=== PATIENT | female | born 1970 | race Caucasian/White ===

== ENCOUNTER → 2020-02-16 14:03 | Outpatient (CLI) | payer MEDICARE, MEDICAID, SELFPAY ==
[2020-02-16 13:41] VITALS: BMI 25.9
--- NOTE | 2020-02-16 14:08 | RAD_ITS ---
STUDY: X-RAY CHEST REASON FOR EXAM: Female, 49 years old. COPD with acute exacerbation -- very sob now and couging TECHNIQUE: PA and lateral views of the chest. COMPARISON: Comparison is made with prior study dated October 30, 2016. FINDINGS: Hyperinflation. There now is evidence of a 1.5 cm x 1.4 cm nodule in the right upper lobe. Correlation with a CT scan is recommended. Blunting of both cause phrenic angles. Normal size heart. Normal mediastinum and bart. Normal visualized pulmonary arteries. Normal visualized aortic arch and descending thoracic aorta. Normal visualized thoracic spine. Normal visualized ribs, clavicles, and shoulders. There is no demonstrated abnormality of the visualized soft tissue structures of the upper abdomen. RAD/Chest PA and Lateral IMPRESSION: 1.5 cm x 1.4 cm nodule in the right upper lobe. CT scan is recommended for further evaluation. Hyperinflation. Electronically Signed: Rodney Garcia, at 14:29 EDT , Service support ,
== END ==
PROVIDERS: PCP Family Medicine; Referring Provider Physician Assistant Surgical; Visit Provider Physician Assistant Surgical
DX: J44.1 Chronic obstructive pulmonary disease with (acute) exacerbation (principal)
CPT/HCPCS: 71046

== ENCOUNTER → 2020-03-30 12:18 | Outpatient (CLI) | payer MEDICARE, MEDICAID, SELFPAY ==
[2020-03-11 07:22] VITALS: BMI 23.8
[2020-03-30 12:30] VITALS: PULSE 105; PULSE 106; PULSE 110; PULSE 112; PULSE 85; PULSE 97; PULSE 99; O2SAT 95; O2SAT 96; O2SAT 97; O2SAT 98
--- NOTE | 2020-03-31 13:39 | PCM.PSN.6M ---
PSN 6 Minute Walk Test - 6 Minute Walk Test 6 Minute Walk Test: 6 Minute Walk Test PSN:6-Minute Walk Test Start: 03/30/20 14:00 Freq: Status: Active Protocol: RESP.6MINW Document 03/30/20 12:30 EW (Rec: 03/30/20 14:05 EW [id number]) 6 Minute Walk Test Date Performed 03/30/20 Time Performed 12:30 Height 5 ft 2 in Weight: 130 lb Weight in Pounds 130.[address]: Negro Conteh Assistive device used: None Pre-test Oxygen Delivery Method Room Air Pulse Ox (%) 98 Pulse Rate (60-100 beats/min) 85 Dyspnea Sree Scale (0-10) 1 Exertion Sree Scale (6-20) 6 1st minute Oxygen Delivery Method Room Air Pulse Ox (%) 95 Pulse Rate (60-100 beats/min) 99 2nd minute Oxygen Delivery Method Room Air Pulse Ox (%) 95 Pulse Rate (60-100 beats/min) 112 H 3rd minute Oxygen Delivery Method Room Air Pulse Ox (%) 95 Pulse Rate (60-100 beats/min) 106 H 4th minute Oxygen Delivery Method Room Air Pulse Ox (%) 97 Pulse Rate (60-100 beats/min) 105 H 5th minute Oxygen Delivery Method Room Air Pulse Ox (%) 96 Pulse Rate (60-100 beats/min) 110 H 6th minute Oxygen Delivery Method Room Air Pulse Ox (%) 95 Pulse Rate (60-100 beats/min) 105 H Post-test Oxygen Delivery Method Room Air Pulse Ox (%) 98 Pulse Rate (60-100 beats/min) 97 Dyspnea Sree Scale (0-10) 2 Exertion Sree Scale (6-20) 8 Full Laps Walked 18 Partial Lap, Number of Tiles Walked 0 Total Distance Walked (ft) 1062 - Interpretation Interpretation: The patient ambulated 1062 feet over the course of 6 minutes beginning on room air without assistive devices or breaks. Pretesting oxygen saturation was noted to be 98% on room air. With ambulation, the sayra oxygen saturation was 95%. There was no significant exertional oxygen desaturation. - Recommendations Recommendations: There is no indication for the use of supplemental oxygen at this time.
== END ==
PROVIDERS: PCP Family Medicine; Referring Provider Internal Medicine Critical Care Medicine; Visit Provider Internal Medicine Critical Care Medicine
DX: R06.00 Dyspnea, unspecified (principal); R91.1 Solitary pulmonary nodule
CPT/HCPCS: 94618

== ENCOUNTER → 2020-04-07 | Outpatient (CLI) | payer MEDICARE, MEDICAID, SELFPAY ==
[2020-03-11 07:22] VITALS: BMI 23.8
--- NOTE | 2020-04-07 14:13 | PFTCOMP ---
COMPLETE PULMONARY FUNCTION TEST INTERPRETATION Brief HPI: Patient is a 49 year old female, currently under the care of myself, who presents to [facility] for complete pulmonary function tests secondary to diagnosis of dyspnea. Respiratory therapist reports good effort and reproducible results. Interpretation: Forced expiration spirometry shows a severe large airways obstructive ventilatory defect with an FEV1 of 47% predicted. There is a significant bronchodilator response in FEV1 and FVC by strict ATS criteria. Spirograms are of good quality and plateau slowly, indicating slowly emptying areas of the lungs. The respiratory flow volume loop shows decreased expiratory flow rates at all lung volumes consistent with airway obstruction. Lung volumes by body plethysmography show an elevated total lung capacity at 5.59 L, 120% predicted. FRC and RV are elevated out of proportion. Lung volume measurements are consistent with hyperinflation and air-trapping. Diffusion capacity by carbon monoxide is decreased at 51% predicted. The airway resistance is elevated. No previous pulmonary function tests were available for review. Impression: Partially reversible severe large airways obstructive ventilatory defect, resulting in air trapping with hyperinflation, and a symmetric reduction in diffusion capacity and a pattern consistent with COPD/asthma overlap syndrome.
== END | disposition home or self-care (01) ==
LOC: PSN 09:11
PROVIDERS: PCP Family Medicine; Referring Provider Internal Medicine Critical Care Medicine; Visit Provider Internal Medicine Critical Care Medicine
DX: R06.00 Dyspnea, unspecified (principal); R91.1 Solitary pulmonary nodule
CPT/HCPCS: 94060; 94726; 94729

== ENCOUNTER → 2020-04-12 09:03 | Outpatient (CLI) | payer MEDICARE, MEDICAID, SELFPAY ==
[2020-03-11 07:22] VITALS: BMI 23.8
[2020-04-12] VITALS (12 sets, daily range): BP systolic 78–114; BP diastolic 40–72; PULSE 72–79; RESP 14–18; TEMP 36.6; O2SAT 94–100; BMI 23.0
--- NOTE | 2020-04-12 | ASPIGT_PTH ---
PATIENT: ABDI ORR LOC: CT U#:[id number] AGE/SX: 54/F ROOM: RE04/12/[address]: Dr. Negro Conteh MD : 1970 BED: DIS: SPEC #: [id number] RECD: 04/12/20 12:39 STATUS: PATRICIA MAXI #: [id number] MINNIE: 04/12/20 00:[address]: Negro Conteh DEPT: SURGICAL PATHOLOGY RECD BY: Leandro Mcclain ENTERED: 04/12/20 12:39 SP TYPE: ASP RAD OTHR DR: Dr. Guero Tapia MD Tissues: Lung, NOS Procedures: FNA Specimen Adequacy Special Stain Group II Surgery Specimen Level IV Imprint (control) HEADER OPERATION: Right lung nodule, CT-guided core biopsy PRE-OP DIAGNOSIS: Right lung nodule TISSUE SUBMITTED: Right lung nodule, CT-guided core biopsy MICROSCOPIC DIAGNOSIS Right lung nodule, CT-guided core biopsy: Non-small cell carcinoma, favor adenocarcinoma, consistent with lung primary. See comment. MANJEET:jace 04/13/20 COMMENT The specimen is evaluated at the time of biopsy by Dr. Hull. Immediate Evaluation = Malignant cells present derived from non-small cell carcinoma. Immunohistochemistry ([id number]) supports the above diagnosis. Molecular studies on the tumor can be performed if clinically indicated. Please notify the laboratory if they are needed. Case has been reviewed in consultation with Dr. Padron who concurs with the above diagnosis. IDC:AM MICROSCOPIC DESCRIPTION Slides are reviewed. GROSS DESCRIPTION Received in fixative is one container labeled with the patient's name and designated right lung biopsy. The specimen consists of multiple irregular fragments of barrera soft tissue that in aggregate measure 1.5 x 0.1 x <0.1 cm. The specimen is totally submitted in one cassette. Two touch imprints are prepared at the time of core biopsy. / MANJEET:jace 04/12/20 TC:0 CPT: 98869, 44452
--- NOTE | 2020-04-12 | IMM_PTH ---
PATIENT: ABDI ORR LOC: CT U#:[id number] AGE/SX: 54/F ROOM: RE04/12/[address]: Dr. Negro Conteh MD : 1970 BED: DIS: SPEC #: [id number] RECD: 04/13/20 11:32 STATUS: PATRICIA REQ #: [id number] MINNIE: 04/12/20 00:[address]: Negro Conteh DEPT: IMMUNOHISTOCHEMISTRY RECD BY: Mary Kiran ENTERED: 04/13/20 11:34 SP TYPE: IMMUNO OTHR DR: Dr. Guero Tapia MD Tissues: Lung, NOS Procedures: RCC (add) NAPSIN A (add) CK20 (add) CK5-6 (add) CK7 (add) CK8 (add) HEP PAR (add) KY (add) TTF1 (add) P40 (add) ER (initial) PHYSICIAN & INSTITUTION [place] [id number] SPECIMEN INFORMATION: Tissue Source: Right lung nodule Clinical Info: Right lung nodule Specimen Number: [id number] CPT code: 24434, 36664 x10 METHODOLOGY: Deparaffinized sections of prefer/formalin-fixed tissue or PAP/DQ stained slides are incubated with monoclonal/polyclonal antibodies/oligonucleotide probes. Localization is made via biotin free immunoperoxidase method. Appropriate controls are performed and reacted as expected. Results on target cell population are indicated in the following table: RESULTS: ANTIBODY / CLONE RESULT ER (6F11) positive KY (1E2) negative CK7 (OV-TL12/30) positive CK8 (13vsjiS89) positive CK20 (KS20.8) negative TTF-1 (8G7G3/1) positive Napsin A (Rabbit Polyclonal) positive HepPar (OCh1E5) negative RCC (PN-15) negative CK5-6 (D5 & 1684) negative P40 (BC28) negative These tests were developed and their performance characteristics determined by [facility]. They may not have been cleared or approved by the U.S. Food and Drug Administration. The FDA has determined that such clearance or approval is not necessary. The above immunohistochemical/dualISH markers are ordered and reviewed by the Pathologist. INTERPRETATION: Right lung nodule, CT-guided core biopsy: Non-small cell carcinoma, favor adenocarcinoma, consistent with lung primary. SJ:jace 04/14/20
--- NOTE | 2020-04-12 09:04 | CT_ITS ---
PROCEDURE: CT GUIDED CORE NEEDLE BIOPSY OF A right upper lobe LUNG LESION INDICATION: Female, 49 years old. LUNG BIOPSY, RIGHT lung biopsy PHYSICIAN: Dr. Jose Shah CONSENT: Written informed consent was obtained having explained the risks, benefits and alternatives in detail with the patient who accepted the risks and agreed to proceed. Laboratory review and clinical assessment was performed. CONSCIOUS SEDATION PROTOCOL: The Drugs used were: 1 mg Versed, IV., and 50 mcg Fentanyl, IV. The sedation time was: 18 minutes. Conscious sedation was started at 10:07 AM and terminated at 10:25 AM. The conscious sedation protocol was independently monitored. RADIATION DOSAGE (If Supplied By Facility): CTDIvol = ( 16.67 ) mGy, DLP = ( 353.66 ) mGycm Individualized dose optimization techniques were used for this CT. TECHNIQUE: The patient was placed in the supine position. A noncontrast CT was performed to localize the lesion in the right upper lobe anteriorly . The skin surface was prepped and draped in a sterile fashion. 1% lidocaine was used for local anesthesia. Using CT guidance, a 20-gauge coaxial biopsy device was advanced to the periphery of the lesion. A total of 3 core specimens were obtained. The specimens were placed in a formalin solution. A post procedure CT demonstrated no adverse sequelae or pneumothorax. The patient tolerated the procedure well without adverse event. A negative biopsy does not exclude malignancy. Further imaging or clinical followup based on patient condition and degree of clinical suspicion for malignancy. Suggest rebiopsy, if biopsy results do not match with clinical scenario. CT/Biopsy/Inj or Needle Placement IMPRESSION: 1. CT directed core needle biopsy of the right upper lobe nodule using CT image guidance with image documentation as described. Pathology results are pending. 2. Conscious Sedation protocol utilized with independent monitoring. Electronically Signed: Rodney Garcia, at 11:01 EDT , Service support ,
[2020-04-12 09:27] LABS: Hematocrit 48.2 % (37-47); Mean Corp Hgb Conc 33.2 g/dL (32-36); Mean Corpuscular Hgb 33.3 pg (27.0-32.0); Mean Corpuscular Volume 100.2 fL (81-99); Mean Platelet Vol. 9.6 fl (6.2-12.0); Platelet Count 207 K/mm3 (150-450); RBC Distribution Width CV 12.2 % (11.6-14.6); RBC Distribution Width SD 45.8 fl (35.1-43.9); Red Blood Count 4.81 M/mm3 (4.2-5.4); White Blood Count 5.3 K/mm3 (4.4-11.0)
[2020-04-12 09:35] LABS: Prothrombin Time (Protime)PT. 12.3 SECONDS (11.7-14.9)
[2020-04-12 09:36] LABS: Partial Thromboplast Time 25.6 Seconds (24.1-36.2)
[2020-04-12] MEDS: Midazolam 2 MG/2 ML Syringe IV (10:06)
[2020-04-12] MEDS: fentaNYL 100 MCG/2 ML Ampul IV (10:07)
--- NOTE | 2020-04-12 10:30 | RAD_ITS ---
STUDY: X-RAY CHEST REASON FOR EXAM: Female, 49 years old. Post lung biopsy immediate TECHNIQUE: AP inspiration and expiration views. COMPARISON: Comparison is made with prior radiograph dated February 16, 2020. FINDINGS: The patient is status post right lung biopsy. There is no evidence of pneumothorax. RAD/Chest Insp/Exp 2 View IMPRESSION: No evidence of pneumothorax on the immediate postright lung biopsy radiograph. Electronically Signed: Rodney Garcia, at 15:39 EDT , Service support ,
--- NOTE | 2020-04-12 12:33 | RAD_ITS ---
STUDY: X-RAY CHEST REASON FOR EXAM: Female, 49 years old. 2 hour post right lung biopsy. TECHNIQUE: AP inspiration and expiration views COMPARISON: Comparison is made with prior examination done earlier in the day. FINDINGS: There is no evidence of pneumothorax on the two-hour post right lung biopsy radiograph. RAD/Chest Insp/Exp 2 View IMPRESSION: No evidence of pneumothorax on the two-hour post right lung apices radiograph. Electronically Signed: Rodney Garcia, at 13:17 EDT , Service support ,
== END ==
PROVIDERS: PCP Family Medicine; Referring Provider Internal Medicine Critical Care Medicine; Visit Provider Internal Medicine Critical Care Medicine
DX: R91.1 Solitary pulmonary nodule (principal); C34.11 Malignant neoplasm of upper lobe, right bronchus or lung
CPT/HCPCS: 32405; 36415; 71046; 77012; 85027; 85610; 85730; 88161; 88172; 88305; 88313; 88341; 88342; 99156; 99157; J7040; A4216

== ENCOUNTER → 2020-04-18 17:44 | Outpatient (CLI) | payer MEDICARE, MEDICAID, SELFPAY ==
[2020-04-15 05:48] VITALS: BMI 22.8
--- NOTE | 2020-04-18 17:44 | MRI_ITS ---
STUDY: MRI BRAIN WITH AND WITHOUT CONTRAST REASON FOR EXAM: Female, 49 years old. staging lung cancer -- new dx, no neuro symptoms TECHNIQUE: Standardized multiplanar fat and water weighted pulse sequences were obtained. IV 13ml dotarem was administered for the contrast portion of the examination. COMPARISON: None. FINDINGS: Normal size of the ventricles and extra-axial spaces for the patient''s age. There are a few punctate white matter lesions in the centrum semiovale and flores radiata without mass effect or restricted diffusion likely representing ischemic changes secondary to small vessel disease.. Normal bilateral basal ganglia. Normal thalami. There is no extra-axial fluid accumulation. Normal flow voids within the major intracranial circulation suggesting patency by spin echo criteria. Normal venous enhancement. There is no enhancing intra-axial or extra-axial abnormality. Normal sella turcica, pituitary gland, infundibular stalk, optic chiasm and hypothalamus. Normal tectal plate and pineal gland. Normal midbrain, reinaldo and medulla. Normal cerebellum. Normal basal cisterns. Normal bilateral temporal bones. Normal bilateral internal auditory canals. No demonstrated orbital abnormality, within the constraints of a routine brain study. There is minor mucosal thickening of the ethmoid air cells bilaterally.. Normal calvarium and skull base. Normal visualized soft tissue structures. Normal visualized upper cervical spine. MRI/Brain W/WO Contrast IMPRESSION: Minor periventricular white matter ischemic changes without mass effect or restricted diffusion. No evidence for metastatic disease. Electronically Signed: Donnell Chapman MD at 19:37 EDT , Service support ,
== END ==
PROVIDERS: PCP Family Medicine; Referring Provider Internal Medicine Critical Care Medicine; Visit Provider Internal Medicine Critical Care Medicine
DX: C34.90 Malignant neoplasm of unspecified part of unspecified bronchus or lung (principal)
CPT/HCPCS: 70553; A9575

== ENCOUNTER → 2020-04-26 14:02 | Outpatient (CLI) | payer MEDICARE, MEDICAID, SELFPAY ==
[2020-04-15 05:48] VITALS: BMI 22.8
--- NOTE | 2020-04-26 14:30 | PET_ITS ---
EXAMINATION: FDG PET CT INDICATIONS: A 49-year-old female with history of carcinoma of the lung presenting for initial staging examination. COMPARISON EXAMINATION: CT of the chest report dated 04/12/20. INDEX LESION SIZE SUV INTERPRETATION Right upper hemithorax pulmonary parenchyma-right upper lobe 19.8 mm x 24.7 mm (frame 189) 11.1 Quantitative criteria for viable neoplasm are fulfilled NON-INDEX LESION SIZE SUV INTERPRETATION Right upper lung zone linear 2.2 Quantitative criteria for viable neoplasm are not fulfilled TECHNIQUE: Following the intravenous administration of 13.19 mCi of F-18 deoxyglucose via the left antecubital fossa, multiplanar image acquisitions of the neck, chest, abdomen and pelvis to level of mid thigh, obtained at one hour post radiopharmaceutical administration contemporaneously interpreted with the current CT of the neck, chest, abdomen and pelvis to level of mid thigh, dated 04/26/[address] of the chest report dated 04/12/20 reveal: SERUM GLUCOSE LEVEL: 95 mg/dl. HEIGHT: 62 inches. WEIGHT: 130 lbs. FINDINGS: 1. A nodular focus of increased glucose metabolism is manifest in the right upper anterior lung-right upper lobe generating a calculated maximum standard uptake value of 11.1. The maximal axial diameter of the corresponding parenchymal density on review of CT of the chest dated 04/26/20 is 19.8 mm (transverse) x 24.7 mm (AP). 2. Linear increased radiopharmaceutical concentration is observed in the right upper lung adjacent to the aforementioned nodular density with a calculated standard uptake value of 2.2. Quantitative criteria for viable neoplasm are not fulfilled. 3. Normal physiologic distribution of the radiopharmaceutical is apparent in the hepatic (2.1) and splenic parenchyma, both renal units, bladder and visualized intestinal tract. There is uniform distribution of the radiopharmaceutical concentration defined in the visualized cerebellar hemispheres and cerebral cortical structures. Prominent gastrointestinal tract distribution of the radiopharmaceutical is noted extending from the proximal gastric body to the rectum-rectal vault. Prominent radiopharmaceutical concentration is observed in the left ventricular myocardium commensurate with the FED state. Pertinent CT findings are as follows. CHEST: Atherosclerotic calcification is defined in the thoracic aorta without evidence of dilatation, aneurysm formation. Coronary arterial calcification is observed. Bilateral axillary soft tissue densities with fatty hilus are non-glucose avid. There are no additional parenchymal densities-nodules defined in the right and left hemithorax demonstrating discernible increased FDG concentration. ABDOMEN AND PELVIS: Atherosclerotic calcification is defined in the abdominal aorta without evidence of dilatation, aneurysm formation. Pelvic arterial calcification is observed. Right-left subcentimeter inguinal soft tissue with fatty hilus is ametabolic. SKELETAL: Degenerative changes defined in the cervical, thoracic and lumbar spine demonstrate no evidence of glucose hypermetabolism. Diffuse demineralization is demonstrated. PET/PET/CT Tumor Base -Thigh Init IMPRESSION: 1. ABNORMAL EXAMINATION INDICATIVE OF MALIGNANT-VIABLE NEOPLASM. 2. Increased radiopharmaceutical concentration, nodular in presentation, defined in the right upper lung zone-right upper lobe fulfills quantitative criteria for viable neoplasm and presumably is manufacturer's representative of the site of the patient?s histologically confirmed primary pulmonary malignancy. 3. The linear increase in fluorine-labeled glucose uptake noted in the right upper lung field adjacent to the nodular focus does not fulfill quantitative criteria for viable neoplasm and likely represents an inflammatory process. 4. No other quantitatively significant hypermetabolic abnormalities are noted. There is no definitive scintigraphic evidence of distant metastatic disease. Electronic Signature Huey Murdock D.O. Accurate Quantification of SUVs for this report are calculated using the exclusive patented [employer]. (U.S. Patent No. [id number], [id number] [phone]). Electronically Signed: Huey Murdock DO at 23:06 EDT Tel , Service support ,
== END ==
PROVIDERS: PCP Family Medicine; Referring Provider Internal Medicine Critical Care Medicine; Visit Provider Internal Medicine Critical Care Medicine
DX: C34.11 Malignant neoplasm of upper lobe, right bronchus or lung (principal)
CPT/HCPCS: 78815; A9552

== ENCOUNTER → 2020-05-11 14:01 | Outpatient (CLI) | payer MEDICARE, MEDICAID, SELFPAY ==
[2020-05-02 15:08] VITALS: BMI 20.9
--- NOTE | 2020-05-11 14:02 | ECHODONC_ITS ---
Reason For Study: PRE CHEMO Procedure This was a 2D Doppler, Color Flow transthoracic echocardiogram. Myocardial strain analysis was performed in this exam to aid in the assessment of cardiac function. The study was technically difficult. Exam performed in department. Left Ventricle Normal LV size. The estimated ejection fraction is 55 %. No regional wall motion abnormalities noted. Right Ventricle Normal RV size. Normal systolic function. Atria Normal left atrium. Normal right atrium. Mitral Valve Normal mitral valve. Tricuspid Valve Normal tricuspid valve. Mild (1+) tricuspid valve insufficiency. Pulmonary artery systolic pressure is 28 mmHg. Aortic Valve Normal aortic valve. Pulmonic Valve Normal pulmonic valve. Great Vessels Normal aortic root. The pulmonary artery is normal size. Normal inferior vena cava. Pericardium/Pleural No pericardial effusion. MMode/2D Measurements & Calculations LVIDd: 4.9 cm IVSd: 0.76 cm Ao root diam: 3.0 cm LVIDs: 2.8 cm LVPWd: 0.84 cm RVDd: 2.1 cm FS: 43.1 % LAV(MOD-bp): 32.4 ml LA A4 area: 12.8 cm2 LA dimension(2D): 2.7 cm LAV(MOD-bp) Indexed: 20.2 ml/m2 LAV(MOD-sp2): 35.2 ml LAV(MOD-sp4): 27.5 ml RA A4 area: 11.8 cm2 Time Measurements MV dec time: 0.46 sec Doppler Measurements & Calculations MV E max vinh: 47.8 cm/sec Lat Peak E' Vinh: 8.0 cm/sec Med Peak E' Vinh: 7.6 cm/sec MV A max vinh: 38.1 cm/sec E/E' lat: 6.0 E/E' med: 6.3 MV E/A: 1.3 Ao V2 max: 97.3 cm/sec LV V1 max: 74.8 cm/sec TR max vinh: 240.6 cm/sec Ao max P.8 mmHg LV V1 max P.3 mmHg TR max P.2 mmHg Interpretation Summary Normal LV size. The estimated ejection fraction is 55 %. No regional wall motion abnormalities noted. Mild (1+) tricuspid valve insufficiency. Pulmonary artery systolic pressure is 28 mmHg. The global longitudinal strain = -15.2% (abnormal). Ordering Physician: August Perez Referring Physician: JORGE LUIS FLAHERTY Performed By: Pat Davey, KAREN, RVT
== END ==
PROVIDERS: PCP Family Medicine; Referring Provider Internal Medicine Medical Oncology; Visit Provider Internal Medicine Medical Oncology
DX: C34.11 Malignant neoplasm of upper lobe, right bronchus or lung (principal); R06.02 Shortness of breath
CPT/HCPCS: 93306; 93356

== ENCOUNTER → 2020-11-30 12:44 | Outpatient (CLI) ==
[2020-11-08 13:14] VITALS: BMI 23.7
--- NOTE | 2020-11-30 12:47 | CT_ITS ---
STUDY: CT CHEST WITH CONTRAST REASON FOR EXAM: Female, 49 years old. Lung cancer monitoring. RADIATION DOSAGE (If Supplied By Facility): CTDIvol = ( 10.59 ) mGy, DLP = ( 185.15 ) mGycm TECHNIQUE: Transaxial imaging was performed following intravenous administration of IV 100mL Isovue-300. Multiplanar coronal and sagittal images were reformatted. Individualized dose optimization techniques were used for this CT. COMPARISON: Comparison is made with prior CT scan dated 04/12/2020. FINDINGS: The previously seen nodule in the peripheral aspect of the right upper lobe has decreased in size. It presently measures 1.2 sinus by 1 cm. There is evidence of a stable appearing nodular increased soft tissue density suggestive of possible scarring. There now is evidence of a 7.9 mm irregular nodular density in the medial aspect of the right upper lobe as seen on axial image #30 and coronal image #143. There is no demonstrated pleural abnormality. Normal heart and pericardium. Normal mediastinum. Normal hilar regions. Normal enhanced pulmonary arteries. Normal aorta arch and descending thoracic aorta. Normal osseous structures. There is no demonstrated abnormality of the visualized upper abdomen. CT/Chest WITH Contrast IMPRESSION: Interval decrease in size of the nodular density in the peripheral aspect of the right upper lobe. 7.9 mm irregular nodular density in the medial aspect of the right upper lobe as described. Electronically Signed: Rodney Garcia MD at 13:55 EST , Service support ,
[2020-11-30 13:01] LABS: CREATININE FINGERSTICK 1.1 mg/dL (0.55-1.02)
== END ==
PROVIDERS: PCP Family Medicine; Referring Provider Internal Medicine Medical Oncology; Visit Provider Internal Medicine Medical Oncology
DX: C34.11 Malignant neoplasm of upper lobe, right bronchus or lung (principal)
CPT/HCPCS: 71260; Q9967

== ENCOUNTER → 2021-01-03 12:52 | Outpatient (CLI) | payer MEDICARE, MEDICAID, SELFPAY ==
[2020-11-08 13:14] VITALS: BMI 23.7
--- NOTE | 2021-01-03 12:54 | ART_ITS ---
Reason For Study: PVD Procedure A bilateral lower extremity continuous wave Doppler with analog waveform analysis,segmental pressures,and ankle brachial indexes without exercise. Left Segmental Pressures Left brachial= 123mmHg. Left posterior tibial artery = 138mmHg. Left dorsalis pedis artery = 137mmHg. Left digit = 110 mmHg. The left dorsalis pedis waveforms are triphasic. The left posterior tibial artery waveforms are triphasic. Right Segmental Pressures Right brachial= 132mmHg. Right posterior tibial artery = 146mmHg. Right dorsalis pedis artery = 120mmHg. Right digit = 123 mmHg. The right dorsalis pedis waveforms are triphasic. The right posterior tibial artery waveforms are triphasic. Indices The right ankle brachial index by the dorsalis pedis is 0.91. The right ankle brachial index by the posterior tibial artery is 1.11. The right digital-brachial index is 0.93. The left ankle brachial index by the dorsalis pedis is 1.04. The left ankle brachial index by the posterior tibial artery is 1.05. The left digital-brachial index is 0.83. Interpretation Summary Triphasic Doppler waveforms are noted at ankle level bilaterally. Pulse-volume recordings appear satisfactory at all levels bilaterally. Resting ankle-brachial indices are normal bilaterally. Digital-brachial indices are normal bilaterally. There is no evidence of significant arterial occlusive disease in the lower extremities bilaterally. Ordering Physician: Donnell Nolan Referring Physician: Guero Tapia Performed By: Jannet Canales RVT
== END ==
PROVIDERS: PCP Family Medicine; Referring Provider Podiatrist; Visit Provider Podiatrist
DX: I73.9 Peripheral vascular disease, unspecified (principal)
CPT/HCPCS: 93923

== ENCOUNTER → 2021-03-02 14:12 | Outpatient (CLI) | payer MEDICARE, MEDICAID, SELFPAY ==
[2021-03-02 13:46] VITALS: BMI 23.3
== END ==
PROVIDERS: PCP Family Medicine; Referring Provider Nurse Practitioner Acute Care; Visit Provider Nurse Practitioner Acute Care
DX: J44.9 Chronic obstructive pulmonary disease, unspecified (principal)
CPT/HCPCS: 87070; 87205

== ENCOUNTER → 2021-04-25 16:29 | Outpatient (CLI) | payer MEDICARE, MEDICAID, SELFPAY ==
[2021-03-02 13:46] VITALS: BMI 23.3
--- NOTE | 2021-04-25 16:45 | MRI_ITS ---
STUDY: MRI RIGHT ANKLE WITHOUT CONTRAST REASON FOR EXAM: Right ankle pain, pressure, burning for 6 months to 1 year, evaluate for sinus tarsi syndrome. TECHNIQUE: Standardized fat and water weighted pulse sequences were obtained in all 3 orthogonal planes. COMPARISON: None. FINDINGS: There is mild edema in the plantar heel pad (inversion recovery sagittal images 8-14). Normal posterior tibialis tendon. Normal flexor digitorum longus tendon. There is a small volume of fluid in the flexor hallucis longus tendon sheath, likely from communication with the tibiotalar articulation. Normal peroneus longus and brevis tendons. Normal tibialis anterior tendon. Normal extensor hallucis longus tendon. Normal extensor digitorum longus tendons. Normal Achilles tendon and teno-osseous insertion. Normal plantar fascia. Normal plantar calcaneal tubercles. Normal intrinsic muscles of the rearfoot. Normal distal tibiofibular syndesmotic ligamentous complex. There is mild thickening of the anterior talofibular ligament (T2 axial images 17, 18) suggestive of scarring. Normal calcaneofibular and posterior talofibular ligaments. There is replacement of the fat in the sinus tarsi (T1 sagittal images 10-12) and a small cyst in the sinus tarsi (inversion recovery sagittal image 12). Normal deltoid ligamentous complexes. Normal plantar calcaneonavicular (spring) ligament. There is a very small tibiotalar joint effusion (inversion recovery sagittal image 9). There is a small osteochondral lesion of the medial aspect of the superior talar dome (T1 sagittal image 8) measuring 0.45 cm in AP dimension with bone edema (T2 coronal image 15). Normal subtalar articulations. There is an os trigonum. There is a small talonavicular joint effusion (inversion recovery sagittal images 8, 9). Normal calcaneocuboid articulation. Normal navicular-cuneiform articulations. MRI/Lower Ext Joint Only (Routine) IMPRESSION: Fat replacement in the sinus tarsi suggestive of sinus tarsi syndrome. Small osteochondral lesion of the medial talar dome. Mild scarring of the anterior talofibular ligament. Small tibiotalar and talonavicular joint effusions. Electronically Signed: Magdy Segal MD at 10:39 EDT Tel , Service support ,
== END ==
PROVIDERS: PCP Family Medicine; Referring Provider Podiatrist; Visit Provider Podiatrist
DX: M25.571 Pain in right ankle and joints of right foot (principal); M76.821 Posterior tibial tendinitis, right leg; M19.071 Primary osteoarthritis, right ankle and foot
CPT/HCPCS: 73721

== ENCOUNTER → 2021-05-30 12:52 | Outpatient (CLI) | payer MEDICARE, MEDICAID, SELFPAY ==
[2020-11-08 13:14] VITALS: BMI 23.7
[2021-03-02 13:46] VITALS: BMI 23.3
--- NOTE | 2021-05-30 12:54 | CT_ITS ---
EXAM DESCRIPTION: CT scan of the chest with IV contrast CLINICAL HISTORY: 50 years Female, SURVEILLANCE LUNG CANCER COMPARISON: Previous CT scan of the chest obtained on 11/30/2020 TECHNIQUE: Axial CT images through the chest were performed with coronal and sagittal reconstruction images with IV contrast. This exam was performed according to our departmental dose-optimization program, which includes automated exposure control, adjustment of the mA and/or kV according to patient size and/or use of iterative reconstruction technique. FINDINGS: In the peripheral portion of the right upper lobe there is a soft tissue nodular density measuring 0.9 x 1.1 cm in size which has decreased when compared with the previous CT scan obtained on 11/30/2020 (at that time it measured 1.2 x 1.0 cm in size.) An additional pulmonary nodule is noted on axial cut 24 measuring 0.8 x 0.5 cm in size in this nodular density has minimally increased in size when compared with the previous CT scan and has somewhat irregular margin. Granuloma versus a slow growing metastasis are the diagnostic considerations. The remainder the pulmonary parenchyma is normal. The heart is normal. The superior mediastinum including the subcarinal bifurcation, both bart and the superior mediastinum are normal. Bone scanning windows through the thorax show the ribs and thoracic spine to be normal. No extrathoracic masses or lesions are seen. The visualized liver, spleen, and adrenals are normal. CT/Chest WITH Contrast IMPRESSION: 1. The soft tissue density in the peripheral portion of the right upper lobe has decreased in size now measuring 0.1 x 1.1 cm in size compared with the previous CT scan of 11/30/2020. 2. A second nodule is noted in the medial aspect of the right upper lobe measuring 0.8 x 0.5 cm in size which has slightly increased in size. Granuloma versus slow growing metastasis are the diagnostic considerations. Electronically Signed: Juan Saldivar DO at 8:12 EDT Tel , Service support ,
== END ==
PROVIDERS: PCP Family Medicine; Referring Provider Internal Medicine Medical Oncology; Visit Provider Internal Medicine Medical Oncology
DX: C34.11 Malignant neoplasm of upper lobe, right bronchus or lung (principal)
CPT/HCPCS: 71260; Q9967

== ENCOUNTER 2021-08-11 14:30 | Outpatient (RCR) | payer MEDICARE, MEDICAID, SELFPAY ==
--- NOTE | 2021-07-13 14:59 | HP.PTEVAL_ITS ---
Patient's Visit Information ABDI ORR is a 50 year old F referred to Physical Therapy by Dr. Donnell Nolan DPM with a diagnosis of Right sinus tarsi syndrome. Date of Evaluation: 07/13/21 Physical Therapist: Carlos Alberto Boyd - Visit Plan Frequency: 2x /Week Duration: 4 Weeks Plan: Continue with improving right ankle/foot strength and balance. - Subjective Pt. is a 50 y.o. female who has been having right ankle pain and instability for about 3-6 months with no specific injury that she is aware of. Pt. PLOF includes no history of right ankle pain in the past before this. She had x-ray of her ankle and also nerve conduction test which were negative. She will occasionally get some tingling in her right ankle. Pt. denies any falls. She has difficulty with walking on uneven ground, ascending/descending stairs, squatting, s tanding/walking longer than 1 hour, housework, and yard work. Pt. is currently on disability. Her goal with physical therapy is to become more active. She has had previous physical therapy for her left arm. She rates right ankle pain at 3/10 currently, 5/10 at worst, 1/10 at best and describes the pain as dull. She does not take any pain medication. Pt. PMH includes lung nodules, smoker about 1.5-2 packs a day for many years, and hysterectomy. Pt. lives with significant other in a two story home with no steps to enter. Her hobbies include working on cars and mowing grass. - Objective Palpation- Mild tenderness over right ankle lateral malleolus. Right ankle AROM DF- 10 degrees, PF 40 degrees, Inv- 43 degrees, and Ev- 12 degrees. Left ankle AROM DF -12 degrees, PF 43 degrees, Inv 48 degrees, and Ev 13 degrees. Right LE strength hip flexion [5/5] abduction [5/5], adduction [5/5], extension [5/5], knee flexion [5/5], knee extension [5/5], ankle DF [5/5], Inv [4+/5], Ev [4+/5], PF[ 4+/5]. Left LE strength hip flexion [5/5], abduction [5/5], adduction [5/5], extension [5/5], knee flexion [5/5], knee extension [5/5], ankle DF [5/5], Inv [4+/5], Ev [4+/5], PF [4+/5]. Sensation- WNL bilateral lower extremities. Tandem stance on right- 30 secs, left- 30 secs. SLS on right- 5 secs, left- 20 secs. Special tests- Anterior drawer [-], Posterior drawer [-], Talar tilt[-], Syndemosis squeeze [-]. Gait- Pt. ambulates with no gait deviations and does not have CAM boot. - Balance/Special Test Scores Lower Extremity Functional Score: 35 - Goals Goal 1:: Pt. will improve right ankle strength to 5/5 for all motions in order to improve stability and balance. Goal Time Frame: 4-6 Weeks Goal 2:: Pt. will be able to ascend/descend flight of stairs with alternating step pattern and no right ankle pain. Goal Time Frame: 4-6 Weeks Goal 3:: Pt. will be able to stand/walk for at least 1 hour with right ankle pain < 3/10. Goal Time Frame: 4-6 Weeks Goal 4:: Pt. will improve SLS on right > 15 secs in order to improve stability and balance. Goal Time Frame: 4-6 Weeks Goal 5:: Pt. will rate right ankle pain at worst at 3/10 with ADL's. Goal Time Frame: 4-6 Weeks Goal 6:: Pt. will improve LEFS score by 10% in order to improve mobility and balance. Goal Time Frame: 4-6 Weeks - Rehabilitation Potential Physical Therapy Diagnosis: Decreased right ankle strength, balance, and pain Rehabilitation Potential: Good - Anticipated Interventions Patient/Client Instruction: Educate patient on: Condition, Plan of Care, Benefits of Fitness Program For the Purpose of:: To decrease pain, To improve ability to perform ADL's, To improve performance and independence with ADL's, To increase flexibility/ROM, To improve endurance, To improve balance, To assume or resume ADL's, To improve tolerance to ADL's Therapeutic Exercise to Include: Strength training, Endurance training, Balance training, Gait and locomotor training Comment: Focus on ankle/foot strengthening and balance exercises. For the Purpose of:: To decrease pain, To improve ability to perform ADL's, To improve performance and independence with ADL's, To increase flexibility/ROM, To improve endurance, To improve balance, To assume or resume ADL's, To improve tolerance to ADL's Functional Training to Include: Gait training For the Purpose of:: To decrease pain, To decrease swelling/inflammation, To increase ROM, To improve ability to perform ADL's, To increase flexibility/ROM, To improve endurance, To improve balance, To improve safety with gait, To improve tolerance to ADL's Thank you for the opportunity to evaluate your patient. For Medicare and Medicare HMO plans, please review the plan of care and approve it. It will need to be FAXED BACK to us at [phone] for Medicare purposes. For Medicare only, by signing this I certify the plan of care. Please let me know if there are questions or concerns regarding this plan of care. Physician Signature : Date:
--- NOTE | 2021-08-11 15:11 | HP.PTDCSUM_ITS ---
It has been my pleasure to treat ABDI ORR referred by Dr. Donnell Nolan, DPM, with the diagnosis of Right sinus tarsi syndrome for a total of 6 visit(s). Discharge Date: Please see the following information for a summary of their discharge status. Subjective: Pt reports she is ready to be done with PT at this time Right kirk Pain Intensity (Out of 10): 1 % Improvement: 80 Objective/Function: R ankle strength is 5/5 throughout. No difficulty with stairs. SLS greater than 30 sec. I with HEP. Rx goals achieved Goal 1:: Pt. will improve right ankle strength to 5/5 for all motions in order to improve stability and balance. Goal Progress: Goal Met Goal 2:: Pt. will be able to ascend/descend flight of stairs with alternating step pattern and no right ankle pain. Goal Progress: Goal Met Goal 3:: Pt. will be able to stand/walk for at least 1 hour with right ankle pain < 3/10. Goal Progress: Goal Met Goal 4:: Pt. will improve SLS on right > 15 secs in order to improve stability and balance. Goal Progress: Goal Met Goal 5:: Pt. will rate right ankle pain at worst at 3/10 with ADL's. Goal Progress: Goal Met Goal 6:: Pt. will improve LEFS score by 10% in order to improve mobility and balance. Goal Progress: Goal Met Plan: Discharge to [facility] If there are questions or concerns regarding this patient's physical therapy, please feel free to call me at [phone]. Thank you for the referral of this patient. Sincerely, Omid Torres, PT, ATC Balance/Gait/Functional tests - Balance/Special Test Scores Lower Extremity Functional Score: 60
== END 2021-08-11 19:00 | disposition home or self-care (01) ==
LOC: PT 14:30
PROVIDERS: PCP Family Medicine; Referring Provider Podiatrist; Visit Provider Podiatrist
DX: M25.371 Other instability, right ankle (principal)
CPT/HCPCS: 97110; 97162; 97164

== ENCOUNTER → 2021-10-13 08:58 | Outpatient (CLI) | payer MEDICARE, MEDICAID, SELFPAY ==
--- NOTE | 2021-10-13 09:03 | NM_ITS ---
CLINICAL: 50-year-old female with history of primary lung carcinoma with current complaint of right shoulder pain. WHOLE BODY 99m Tc MDP RADIONUCLIDE BONE SCINTIGRAPHY COMPARISON: None available FINDINGS: Following the intravenous administration of 26.1 mCi of 99m Tc MDP, whole body bone images reveal: 1. Increased radiopharmaceutical concentration is defined in the acromioclavicular compartment of the right shoulder, fifth lumbar vertebra posteriorly on the right, the patellofemoral compartments of both knees, medial tibial compartment of the left knee, medial compartment of the left ankle, the right midfoot, forefoot. 2. The remaining skeletal structures are scintigraphically unremarkable with normal-appearing renal images and urinary bladder activity identified. Facilitated tracer distribution is visualized in the left maxilla, left zygoma and and interorbital aspect of the calvarium most consistent with periostitis. NM/Bone Scan Whole Body IMPRESSION: 1. The increase in radiopharmaceutical concentration defined in the right shoulder, fifth lumbar vertebra, bilateral knees, the left ankle, right midfoot, the right forefoot is most consistent with degenerative arthritis. 2. There is no definitive typical scintigraphic evidence of diffuse axial skeletal metastatic disease. Meticulous attention paid to the right shoulder articulations demonstrates no significant osseous abnormality. Electronically Signed: Huey Murdock DO at 8:01 EST Tel , Service support ,
== END ==
PROVIDERS: PCP Family Medicine; Visit Provider Internal Medicine Medical Oncology
DX: M25.511 Pain in right shoulder (principal); Z85.118 Personal history of other malignant neoplasm of bronchus and lung
CPT/HCPCS: 78306; A9503

== ENCOUNTER → 2021-10-17 12:20 | Outpatient (CLI) | payer MEDICARE, MEDICAID, SELFPAY ==
--- NOTE | 2021-10-17 12:45 | MRI_ITS ---
STUDY: MRI UPPER EXTREMITY RIGHT HUMERUS WITH T WITHOUT CONTRAST REASON FOR EXAM: Female, 50 years old. PAIN UNDER RIGHT ARMPIT RADIATING INTO RIGHT CHEST AT LEVEL OF ARMPIT X 2 MONTHS. HX OF LUNG NODULE. R/O METATSTASIS. patient had bone scan done 10/13/21 also. TECHNIQUE: Standardized fat and water weighted pulse sequences were obtained in all 3 orthogonal planes, pre-and post contrast administration. IV DOATREM 13mL was administered for the contrast portion of the examination. COMPARISON: Nuclear medicine whole body bone scan dated October 13, 2021. CT of the chest dated May 30, 2021 FINDINGS: Reidentification of small spiculated nodule in the upper one third aspect of the right upper lobe in the lateral subpleural region, see image 15/30 series 12. Linear spicules from this nodule extending into the subpleural space and intercostal regions of the right upper lobe resulting in mild edematous signal and irregularity. This is presumed postsurgical or posttreatment related fibrotic scarring, but it may require correlation with PET/CT imaging to determine if there is any active malignant metabolic activity in this region. Mild enhancement is seen in the same affected soft tissues. No visualized bone marrow edema or aggressive process and the shoulder structures or humerus. Normal subcutis adipose space. There is no demonstrated solid, cystic, or lipomatous mass within the subcutaneous adipose space. Normal visualized muscles and fascia. Normal visualized neurovascular bundles. Normal humerus. MRI/Upper Ext No Joint W/WO Cont IMPRESSION: 1. Reidentification of small spiculated nodule in the upper one third aspect of the right upper lobe in the lateral subpleural region, see image 15/30 series 12. Linear spicules from this nodule extending into the subpleural space and intercostal regions of the right upper lobe resulting in mild edematous signal and irregularity. This is presumed postsurgical or posttreatment related fibrotic scarring, but it may require correlation with PET/CT imaging to determine if there is any active malignant metabolic activity in this region. 2. Mild enhancement is seen in the same affected soft tissues. 3. No visualized bone marrow edema or aggressive process and the shoulder structures or humerus. Electronically Signed: Willy Merlos MD at 23:41 EST , Service support ,
== END ==
PROVIDERS: PCP Family Medicine; Visit Provider Internal Medicine Medical Oncology
DX: M25.511 Pain in right shoulder (principal)
CPT/HCPCS: 73220; A9575

== ENCOUNTER 2021-12-18 12:44 | Outpatient (CLI) | payer MEDICARE, MEDICAID, SELFPAY ==
--- NOTE | 2021-12-18 12:50 | CT_ITS ---
STUDY: CT CHEST WITH CONTRAST REASON FOR EXAM: Female, 50 years old. MONITOR LUNG CA RADIATION DOSAGE (If Supplied By Facility): CTDIvol = ( 9.53 ) mGy, DLP = ( 225.53 ) mGycm TECHNIQUE: Transaxial imaging was performed following intravenous administration of IV 100mL Isovue-300. Multiplanar coronal and sagittal images were reformatted. Individualized dose optimization techniques were used for this CT. COMPARISON: Comparison is made with prior study dated 05/30/2021. FINDINGS: Small benign-appearing bilateral axillary lymph nodes. Stable 6 mm slightly spiculated nodule in the anterior medial aspect of the right upper lobe. 7.6 mm nodular density in the peripheral lateral aspect of the right upper lobe and area of scarring. This nodule has decreased in size as compared to prior study. Hyperinflation. Emphysematous changes. There is no demonstrated pleural abnormality. Mild degree of coronary artery calcification. Normal mediastinum. Normal hilar regions. Normal enhanced pulmonary arteries. Normal aorta arch and descending thoracic aorta. There are mild degenerative changes of the thoracic spine. Fatty infiltration of the liver. CT/Chest WITH Contrast IMPRESSION: Stable 6 mm slightly spicular nodule in the anteromedial aspect of the right upper lobe. Interval decrease in size of a peripheral lateral nodule in the right upper lobe in the area of scarring. Electronically Signed: Rodney Garcia MD at 15:02 EST ,
== END 2021-12-18 23:59 | disposition home or self-care (01) ==
PROVIDERS: PCP Family Medicine; Referring Provider Internal Medicine Medical Oncology; Visit Provider Internal Medicine Medical Oncology
DX: C34.11 Malignant neoplasm of upper lobe, right bronchus or lung (principal)
CPT/HCPCS: 71260; Q9967

== ENCOUNTER → 2022-06-18 | Outpatient (CLI) | payer MEDICARE, MEDICAID, SELFPAY ==
--- NOTE | 2022-06-18 13:57 | CT_ITS ---
INDICATION: MONITOR RIGHT LUNG CANCER EXAMINATION: CT CHEST WITH CONTRAST - CT Chest W/ Contrast Injection TECHNIQUE: Helically acquired images were obtained of the chest following IV contrast. A radiation dose optimization technique was used for this scan. IV Contrast dosage and agent: COMPARISON: 05/30/2021 CT chest, 12/18/2021 CT chest FINDINGS: LUNGS, PLEURA AND LARGE AIRWAYS: Within the right upper lobe apical segment medially is noted similar size nodular appearance within the upper segment of the nodule measuring 9 x 5 cm with the inferior portion demonstrating increasing spiculated appearance versus scarring right upper lobe compared to the prior exam. [The right upper lobe lateral aspect is increased soft tissue density of the previously seen likely scarring now measuring 1.1 x 0.7 cm and previously measuring 1.0 x 0.4 cm. No pleural effusion or thickening. No pneumothorax. THYROID: No thyroid lesions. HEART AND PERICARDIUM: Heart size is normal. No pericardial effusion. VESSELS: Thoracic aorta is not dilated. No aortic dissection. No obvious central pulmonary embolism although this study was not performed with the pulmonary embolism protocol. MEDIASTINUM AND ANA: No mediastinal or hilar adenopathy. Esophagus is unremarkable. No hiatal hernia. UPPER ABDOMEN: No acute pathology. BONES: No suspicious lytic or blastic abnormality. CT/Chest WITH Contrast IMPRESSION: 1. Right upper lobe medial segment similar appearing 6 mm nodule, however increased inferior aspect spiculation versus scarring compared to the prior exam. 2. Right upper lobe lateral segment produces seen. Likely scarring now has increased soft tissue component compared to prior measuring 1.1 x 0.7 cm and previous and measuring 1.0 x 0.4 cm with otherwise similar appearance compared to the 12/18/2021 exam. These findings were similar compared to 05/30/2021 exam with underlying inflammatory/post treatment change not excluded. Electronically Signed: Travis Hernández DO at 14:54 EDT ,
== END | disposition home or self-care (01) ==
LOC: CT 13:55
PROVIDERS: Referring Provider Internal Medicine Medical Oncology; Visit Provider Internal Medicine Medical Oncology
DX: R91.1 Solitary pulmonary nodule (principal)
CPT/HCPCS: 71260; Q9967; A4216

== ENCOUNTER → 2022-12-28 | Outpatient (CLI) | payer MEDICARE, MEDICAID, SELFPAY ==
--- NOTE | 2022-12-28 13:05 | CT_ITS ---
EXAM: CT CHEST WITH INTRAVENOUS CONTRAST CLINICAL INDICATION: NSCLC, MONITOR TECHNIQUE: Helically acquired images were obtained of the chest with intravenous contrast. This CT exam was performed using one or more of the following dose reduction techniques: automated exposure control, adjustment of the mA and/or kV according to patient size, and/or use of iterative reconstruction technique. This report was created using [employer] report generation technology. CONTRAST: IV 100mL Isovue-300 COMPARISON: 06/18/2022 FINDINGS: LUNGS AND PLEURAL SPACES: There is a spiculated lesion in the right upper lobe that measures 1.1 x 1.2 x 1.5 cm on today''s exam compared to 0.9 x 1.1 x 1.1 cm on the previous exam. There is no focal consolidation. No pleural effusion or thickening. No pneumothorax. HEART: Unremarkable. Heart size is normal. No pericardial effusion. No significant coronary artery calcifications. MEDIASTINUM: Unremarkable. No mediastinal or hilar adenopathy. Esophagus is unremarkable. No hiatal hernia. THYROID: Unremarkable. No thyroid lesions. BONES/JOINTS: Unremarkable. No suspicious lytic or blastic abnormality. VASCULATURE: Unremarkable. Thoracic aorta is non-dilated. No thoracic aortic dissection. No obvious central pulmonary embolism although this study was not performed with the pulmonary embolism protocol. CT/Chest WITH Contrast IMPRESSION: Spiculated lesion again seen within the right upper lobe which is minimally increased in size on today''s examination. If indicated further evaluation with PET CT scan may be beneficial. No other abnormalities identified. Electronically Signed: Emmanuel Wyman MD at 0:03 EST ,
== END | disposition home or self-care (01) ==
LOC: CT 13:03
PROVIDERS: Visit Provider Internal Medicine Medical Oncology
DX: C34.91 Malignant neoplasm of unspecified part of right bronchus or lung (principal)
CPT/HCPCS: 71260; Q9967

== ENCOUNTER → 2023-07-02 | Outpatient (CLI) | payer MEDICARE, MEDICAID, SELFPAY ==
--- NOTE | 2023-07-02 13:23 | CT_ITS ---
STUDY: CT CHEST WITH CONTRAST REASON FOR EXAM: Female, 52 years old. MONITOR LUNG CA RADIATION DOSAGE (If Supplied By Facility): CTDIvol = ( 7.78 ) mGy, DLP = ( 222.04 ) mGycm TECHNIQUE: Transaxial imaging was performed following intravenous administration of IV 100mL Isovue-300. Multiplanar coronal and sagittal images were reformatted. Individualized dose optimization techniques were used for this CT. COMPARISON: Comparison is made with prior study from December 28, 2022. FINDINGS: CHEST Stable 8 mm lobulated nodule in the superior medial aspect of the right upper lobe. Stable 8.9 mm x 1.2 cm spiculated nodule in the peripheral lateral aspect of the right upper lobe as seen on axial image #34. Stable focal pleural thickening at that site. Stable mild scarring in the right middle lobe. There is no demonstrated pleural abnormality. Normal heart and pericardium. Normal mediastinum. Normal hilar regions. Normal unenhanced pulmonary arteries. Normal aorta arch and descending thoracic aorta. There are multi-level degenerative changes of the thoracic spine. There is no demonstrated abnormality of the visualized upper abdomen. CT/Chest WITH Contrast IMPRESSION: Stable examination. Electronically Signed: Rodney Garcia MD at 15:37 EDT ,
== END | disposition home or self-care (01) ==
PROVIDERS: Referring Provider Internal Medicine Medical Oncology; Visit Provider Internal Medicine Medical Oncology
DX: C34.11 Malignant neoplasm of upper lobe, right bronchus or lung (principal)
CPT/HCPCS: 71260; Q9967

== ENCOUNTER → 2023-12-31 | Outpatient (CLI) | payer MEDICARE, MEDICAID, SELFPAY ==
--- NOTE | 2023-12-31 13:13 | CT_ITS ---
HISTORY: MONITOR LUNG CA. TECHNIQUE: CT of the chest was performed after the intravenous administration of IV 100mL Isovue-300. Coronal and sagittal reformatted images. Individualized dose optimization techniques were used for this CT. 821 images. COMPARISON: CT 07/02/2023, 12/28/2022, and 06/18/2022. PET-CT 04/26/2020. FINDINGS: CENTRAL AIRWAYS: Patent. LUNGS: 8 x 10 x 12 mm spiculated right upper lobe nodule medially, previously 6 x 9 x10 mm on 2022 priors. Right upper lobe scarring more laterally with residual 6 x 15 mm opacity similar in size to prior. PLEURA: No pneumothorax or significant pleural effusion. HEART/PERICARDIUM: Heart within normal limits in size. Trace pericardial effusion. AORTA/VESSELS: No thoracic aortic aneurysm or dissection flap. Mild atherosclerosis. No large central filling defect identified in the pulmonary arteries. MEDIASTINUM/ANA: No pathologically enlarged lymph nodes. OSSEOUS STRUCTURES: Intact without suspicious osteoblastic or osteolytic lesion. UPPER ABDOMEN: Unremarkable. CT/Chest WITH Contrast IMPRESSION: Slightly increased size of spiculated nodule in the medial right upper lobe. Recommend correlation with PET-CT. No significant interval change in appearance of scarring and treated mass in the right upper lobe more laterally. Electronically Signed: Eden Ko MD at 12:14 EST ,
--- OUTSIDE RECORDS SUMMARY | 2023-12-31 16:23 | XMS RPT_ITS | CCD ---
Author Name Unknown Address [address] [place] [address] Organization [facility] Care Team Providers Care Machine Operator Hay Stacker Name Role Phone FARIDEH LEO DO Primary Care Physician FARIDEH LEO DO Attending Unavailable FARIDEH LEO DO Primary Care Unavailable FARIDEH LEO DO Attending Unavailable FARIDEH LEO DO Primary Care Unavailable Allergies Allergy Classification Reported Allergen(s) Allergy Type Date of Onset Reaction(s) Facility (2 sources) Penicillin; Translations: [penicillins] Drug Allergy unknown [facility] (2 sources) Sulfonamides (Antibiotic); Translations: [sulfa drugs] Drug allergy unknown [facility] Medications Current Medications Medication Drug Class(es) Dates Sig (Normalized) Sig (Original) albuterol MDI (90 mcg/inh) CFC free inhalation aerosol (1 source) Start: 09-25-2019 take 2 puff(s) by inhalation every four hours as needed for wheezing albuterol MDI (90 mcg/inh) CFC free inhalation aerosol 2 puff(s), Inhalation, q4h, PRN as needed for wheezing, # 1 EA, 11 Refill(s), Pharmacy: [facility] #[id number] Start Date: 09/25/19 Status: Ordered Breztri Aerosphere inhalation aerosol (1 source) Start: 06-27-2022 take 1 dose by mouth twice daily Breztri Aerosphere inhalation aerosol Dose = 2 puff(s), Inhalation, BID, rinse mouth and throat after use, # 5.9 gram(s), 0 Refill(s), Pharmacy: [facility] #[id number], COPD, severe Decreased diffusion capacity, 166, cm, 06/27/22 14:05:00 EDT, Height Start Date: 06/27/22 Status: Ordered DME [facility] (2 sources) Start: 04-23-2022 DME [facility] See Instructions, Fan / AC unit Patient would benefit from having a fan / AC unit due to COPD., # 1 EA, 0 Refill(s), 66.1 Start Date: 04/23/22 Status: Ordered fluticasone / umeclidinium / vilanterol (1 source) Anticholinergic, Corticosteroid, beta2-Adrenergic Agonist Start: 05-18-2022 fluticasone/umeclid inium/vilanterol Respiratory (Inhalation), 0 Refill(s) Start Date: 05/18/22 Status: Ordered hydrocortisone 25 mg/ml topical cream (1 source) Corticosteroid Start: 11-20-2020 hydrocortisone 2.5% topical cream Apply 1 israel, Topical, BID, # 20 gram(s), 1 Refill(s), Pharmacy: [facility]/pharmacy #[id number], Cream, 166, cm, 11/18/20 15:04:00 EST, Height, 60.4, kg, 11/18/20 15:04:00 EST, Dosing Weight Start Date: 11/20/20 Status: Ordered 24 hr mirabegron 25 mg extended release oral tablet (1 source) beta3-Adrenergic Agonist Start: 07-22-2023 Myrbetriq 25 mg oral tablet, extended release Dose : 25 mg = 1 tab(s), Oral, qDay, if doing well, call for 90 day Rx, # 30 tab(s), 1 Refill(s), Pharmacy: [facility]/pharmacy #[id number], Urge incontinence, 165, cm, 07/22/23 14:32:00 EDT, Height, kg, 07/22/23 14:32:00 EDT, Dosing Weight Start Date: 07/22/23 Status: Ordered montelukast 10 mg oral tablet (2 sources) Leukotriene Receptor Antagonist Start: 12-26-2022 montelukast 10 mg oral tablet Dose : 10 mg = 1 tab(s), Oral, qDay, # 90 tab(s), 3 Refill(s), Pharmacy: [facility]/pharmacy #[id number], COPD with emphysema, 166, cm, 12/26/22 14:04:00 EST, Height, kg, 12/26/22 14:04:00 EST, Dosing Weight Start Date: 12/26/22 Status: Ordered Problems Problem Classification Problem Date Documented Da te Episodic/Chronic Allergic reactions (1 source) Eczema 07-22-2023 Episodic Anxiety disorders (2 sources) Anxiety 06-12-2016 Chronic Anxiety disorders (2 sources) Feeling irritable 04-20-2022 Episodic Cancer of bronchus; lung (1 source) Adenocarcinoma of right lung 01-25-2023 Chronic Chronic obstructive pulmonary disease and bronchiectasis (3 sources) Pulmonary emphysema; Translations: [Severe chronic obstructive pulmonary disease] 04-20-2022 Chronic Results Test Name Value Interpretation Reference Range Facil ity Encounters Encounter Date Encounter Type Care Provider Facility Start: 07-22-2023 End: 07-26-2023 Outreach Lab FARIDEH LEO DO [facility] Start: 06-14-2022 End: 06-15-2022 ambulatory FARIDEH LEO DO Facility:B Start: 06-14-2022 End: 06-14-2022 Patient encounter procedure FARIDEH LEO DO [facility] Start: 05-16-2022 End: 05-17-2022 ambulatory FARIDEH LEO DO Facility:B Procedures Date Procedure Procedure Detail Performing Clinician History of total hysterectomy S/P total h ysterectomy FARIDEH LEO DO Ligation of fallopian tube Krish LEO DO Immunizations Immunization Date Immunization Notes Care Provider Jm mosqueda 07-22-2023 influenza, injectabl e, quadrivalent, contains preservative; Translations: [Fluarix PF Quadrivalent ] FARIDEH LEO DO [facility] 08-14-2022 influenza, injectabl e, quadrivalent, contains preservative; Translations: [Fluarix PF Quadrivalent ] FARIDEH LEO DO [facility] 07-18-2020 influenza virus vacc ine, unspecified formulation FARIDEH LEO DO [facility] 09-25-2019 influenza, injectabl e, quadrivalent, preservative free; Translations: [Fluarix PF Quadrivalent ] FARIDEH LEO DO [facility] 06-27-2018 influenza virus vacc ine, unspecified formulation FARIDEH LEO DO [facility] 09-09-2017 influenza virus vacc ine, unspecified formulation FARIDEH LEO DO [facility] 09-08-2016 tetanus toxoid, redu ramos diphtheria toxoid, and acellular pertussis vaccine, adsorbed FARIDEH LEO DO [facility] 08-08-2016 influenza virus vacc ine, unspecified formulation FARIDEH LEO DO [facility] 08-11-2015 influenza virus vacc ine, unspecified formulation FARIDEH LEO DO [facility] 08-26-2014 pneumococcal polysaccharide vaccine, 23 valent FARIDEH LEO DO [facility] 08-26-2014 tetanus toxoid, redu ramos diphtheria toxoid, and acellular pertussis vaccine, adsorbed FARIDEH LEO DO [facility] Payers Date Payer Category Payer Unknown [id number] 1970 Unknown [id number] 1970 Unknown [id number] Social History Date Type Detail Facility Start: 09-23-2019 Tobacco smoking status Heavy t obacco smoker (finding) [facility] Sex Assigned At Female [facility] Progress note 07-20-2021 Note Date & Type Note Facility 07-20-2021 Note HNO ID: [id number] Author: Anabel Chapa APRN.DRUM LOADER AND UNLOADER Service: ? Author Type: Nurse Practitioner Type: Progress Notes Filed: 07/20/2021 6:05 PM Note Text: SUBJECTIVE Abdi Ernst is a 50 year old female who presents with 2 days of symptoms that are stable. Has URI symptoms. Also complains of sore spot in right armpit. Symptoms include: Fever (?100.4F): No or Chills: No Cough: Yes Shortness of breath: No or Difficulty breathing: No Fatigue: No Muscle aches: No Headache: No New loss of smell or taste: No Sore throat: No Nasal congestion: Yes or Rhinorrhea: Yes Nausea: No or Vomiting: No Diarrhea: No High risk category assessment No high risk factors Exposures: Sick contacts? No Family or close contacts with confirmed/probable COVID-19 in last 14 days? No She reports that she has been smoking. She has never used smokeless tobacco. 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 ALLERGIES Penicillins and Sulfa (Sulfonamide Antibiotics) MEDICATIONS clotrimazole (LOTRIMIN) 1 % external solution Apply to affected area once daily. To toes. hydrocortisone 2.5 % cream Apply to affected area twice daily. APPLY TO AFFECTED AREA busPIRone (BUSPAR) 15 mg tablet Take 15 mg by mouth twice daily. OLANZapine (ZYPREXA) 10 mg tablet Take 1 tablet by mouth daily at bedtime. guaiFENesin (MUCINEX) 600 mg 12 hr tablet Take 1 tablet by mouth twice daily for 10 days. albuterol HFA (VENTOLIN HFA) 90 mcg/actuation inhaler Inhale 2 Puffs as instructed every 4 hours as needed. mupirocin (BACTROBAN) 2 % ointment Apply 1 application to affected area twice daily for 10 days. TRELEGY ELLIPTA 100-62.5-25 mcg Inhale 1 Puff as instructed once daily. busPIRone (BUSPAR) 7.5 mg tablet Take 7.5 mg by mouth twice daily. OLANZapine (ZYPREXA) 5 mg tablet TAKE 1 TABLET BY MOUTH EVERYDAY AT BEDTIME No family history on file. Social History Tobacco Use - Smoking status: Current Every Day Smoker - Smokeless tobacco: Never Used Substance Use Topics - Alcohol use: Not on file - Drug use: Not on file OBJECTIVE Physical Exam Vitals and nursing note reviewed. HENT: Nose: Congestion and rhinorrhea present. Mouth/Throat: Mouth: Mucous membranes are moist. Pharynx: Oropharynx is clear. Uvula midline. No oropharyngeal exudate or posterior oropharyngeal erythema. Cardiovascular: Rate and Rhythm: Normal rate and regular rhythm. Heart sounds: Normal heart sounds. Pulmonary: Effort: Pulmonary effort is normal. No respiratory distress. Breath sounds: Wheezing (few, scattered) present. No rales. Skin: General: Skin is warm and dry. Findings: Erythema (right armpit slight erythema at hair follicle) present. No rash. Neurological: Mental Status: She is alert. ASSESSMENT/PLAN ASSESSMENT/PLAN: 1. Suspected COVID-19 virus infection - ICD9: V01.79, ICD10: Z20.822 (primary diagnosis) - 2019 CORONAVIRUS - GUAIFENESIN ER 600 MG TABLET, EXTENDED RELEASE 12 HR 2. Inflamed hair follicle - ICD9: 680.9, ICD10: L73.9 - MUPIROCIN 2 % TOPICAL OINTMENT - Follow-up with your PCP in 3-5 days if symptoms have not improved or sooner if symptoms worsen - Discussed red flags and need for immediate medical evaluation if any occur. - Discussed supportive care treatment with fluids, rest and analgesia. - Discussed expected course of illness Anabel Chapa APRN.CNP - Meets symptom-based criteria for testing and is low risk. - COVID swab collected at time of office visit - Instructed to isolate pending test results - Discussed symptom monitoring and supportive care - Red flag symptoms requiring follow up discussed This patient encounter involved the screening or treatment of novel coronavirus infection (COVID-19). [facility] Progress note 02-01-2021 Note Date & Type Note Facility 02-01-2021 Note HNO ID: [id number] Author: Eric Piper (Rt) Service: ? Author Type: Rehabilitation Manager Type: Progress Notes Filed: 02/01/2021 1:51 PM Note Text: Radiology Service Progress Note PATIENT NAME: Abdi Ernst DATE OF SERVICE: February 01, 2021 TIME: 1:42 PM PATIENT IDENTITY VERIFICATION COMPLETED USING TWO (2) IDENTIFIERS: Name and Date of confirmed by patient verbally. FALL SCREENING: Has the patient had 2 falls in the last year or 1 fall with injury or currently using an Ambulatory Assistive Device (Walker, Cane, Wheelchair, Crutches, etc.)? No PATIENT GENDER DATA: Female. status: : No status: NO. PATIENT RELEVANT IMPLANT DATA REVIEWED: Yes RADIOLOGY DEPARTMENT: General X-ray: Exam(s) Completed: Chest X-Ray PERIPHERAL IV DATA: Not applicable SIGNED BY: RT Feliz February 01, 2021 1:42 PM [facility] Progress note 02-01-2021 Note Date & Type Note Facility 02-01-2021 Note HNO ID: [id number] Author: Mendoza Goodwin Service: ? Author Type: Nurse Practitioner Type: Progress Notes Filed: 02/01/2021 3:33 PM Note Text: Subjective HPI HPI Abdi Ernst is a 50 year old female who presents today for CC of cough, sinus pressure, fever, shortness of breath. This started 1 week ago. Has tried otc medication without relief. Symptoms are worsened by smoking. Risk factors hx of lung cancer and asthma. smoker. Denies diarrhea, loss taste/smell, cp. .Patient presents with: Cough: with chest congestion AND burning throat x 1 week PAST MEDICAL HISTORY Diagnosis Date - Anxiety and depression - Bipolar 1 disorder (HCC) - Bronchogenic carcinoma of right lung (HCC) 2019 non-small cell adenocarcinoma No past surgical history on file. ALLERGIES Penicillins and Sulfa (Sulfonamide Antibiotics) -This section reviewed with patient, no changes MEDICATIONS albuterol sulfate 90 mcg/actuation breath activated powder inhaler Inhale 2 Puffs as instructed every 4 hours as needed. TRELEGY ELLIPTA 100-62.5-25 mcg Inhale 1 Puff as instructed once daily. clotrimazole (LOTRIMIN) 1 % external solution Apply to affected area once daily. To toes. hydrocortisone 2.5 % cream Apply to affected area twice daily. APPLY TO AFFECTED AREA busPIRone (BUSPAR) 15 mg tablet Take 15 mg by mouth twice daily. OLANZapine (ZYPREXA) 10 mg tablet Take 1 tablet by mouth daily at bedtime. albuterol sulfate 90 mcg/actuation breath activated powder inhaler Inhale as instructed. busPIRone (BUSPAR) 7.5 mg tablet Take 7.5 mg by mouth twice daily. OLANZapine (ZYPREXA) 5 mg tablet TAKE 1 TABLET BY MOUTH EVERYDAY AT BEDTIME No family history on file. Social History Tobacco Use - Smoking status: Current Every Day Smoker - Smokeless tobacco: Never Used Substance Use Topics - Alcohol use: Not on file - Drug use: Not on file ROS Objective Blood pressure 114/64, pulse 104, temperature 37.7 ?C (99.9 ?F), temperature source Left Tympanic, resp. rate 20, weight 60.1 kg (132 lb 9.6 oz), SpO2 95 %. Physical Exam Constitutional: General: She is not in acute distress. Appearance: She is not toxic-appearing or diaphoretic. HENT: Head: Normocephalic and atraumatic. Right Ear: Hearing, tympanic membrane, ear canal and external ear normal. Left Ear: Hearing, tympanic membrane, ear canal and external ear normal. Nose: Nose normal. Eyes: General: Lids are normal. No scleral icterus. Right eye: No discharge. Left eye: No discharge. Conjunctiva/sclera: Conjunctivae normal. Pupils: Pupils are equal, round, and reactive to light. Neck: Trachea: Trachea normal. Cardiovascular: Rate and Rhythm: Normal rate and regular rhythm. Heart sounds: Normal heart sounds. Pulmonary: Effort: Pulmonary effort is normal. Breath sounds: Normal breath sounds. Musculoskeletal: Cervical back: Normal range of motion and neck supple. Lymphadenopathy: Cervical: No cervical adenopathy. Skin: Findings: No rash. Neurological: Mental Status: She is alert and oriented to person, place, and time. ASSESSMENT/PLAN: 1. Cough - ICD9: 786.2, ICD10: R05 (primary diagnosis) Treat as below - 2019 CORONAVIRUS - XR CHEST 2V FRONTAL/LAT IMPRESSION: ? Patchy opacities overlying the right upper lung. Please clinically correlate. ? Dictated by : MONA THOMASON MD 2. Opacity of lung on imaging study - ICD9: 793.19, ICD10: R91.8 Will cover for pneumonia - Discussed supportive care - Limit exposure to smoke and other inhaled irritants - Discussed possible red flags and when to seek medical attention - Follow up in 3-5 days or sooner if no better or worse -If you experience chest pain/shortness of breath go to ER - LEVOFLOXACIN 750 MG TABLET Agrees to plan Discussed case with collaborating physician Dr. Lal. Mendoza Goodwin APRN.SEBASTIAN [facility] Evaluation + Plan note Note Date & Type Note Facility Evaluation + Plan note Future Appointments Appointment Date:06/27/2022 02:00:00 PM Scheduled Provider:FARIDEH LEO DO Location:[facility] Appointment Type: OV [facility] Evaluation + Plan note Laboratory Note Date & Type Note Facility Evaluation + Plan note Future Appointments Appointment Date:09/18/2023 01:30:00 PM Scheduled Provider:FARIDEH LEO DO Location:[facility] Appointment Type: OV Future Scheduled TestsThyroid Stimulating Hormone 12/26/22Free T4 12/26/22Urinalysis Microscopic 07/22/23Complete Blood Count 12/26/22Lipid Profile 12/26/22Vitamin D Level 12/26/22Complete Metabolic Panel 12/26/22 [facility] Hospital course Narrative Note Date & Type Note Facility Hospital course Narrative No data available for this section [facility] Hospital Discharge instructions Note Date & Type Note Facility Hospital Discharge instructions No data available for this section [facility] Progress note Note Date & Type Note Facility Progress note No data available for this section [facility] Summary Purpose Family History No Family History Records FoundNo Family History Records Found No data available for this section Advance Directives No Advanced Directives Records FoundNo Advanced Directives Records Found Additional Source Comments INFORMATION SOURCE (unrecogn ized section and content) DATE CREATED AUTHOR AUTHOR'S ORGANIZ ATION 04/19/2023 [facility] ([place]) Care Team (unrecognized sect ion and content) Care Team Personnel Name: Keisha Boyce Position: Quality Review Member Role: Precast Concrete Ironworker Name: FARIDEH LEO DO Position: P4 Physician - Primary Care Member Role: Primary Care Physician Address: Address: [address] [place] [address] Care Team Related Persons Name: NONE, NONE Patient Care team informatio n (unrecognized section and content) Care Team Personnel Name: Keisha Boyce Position: Quality Review Member Role: Precast Concrete Ironworker Name: FARIDEH LEO DO Position: P4 Physician - Primary Care Member Role: Primary Care Physician Address: Address: [address] [place] [address] Care Team Related Persons Name: NONE, NONE FOR RECORDS PERTAINING TO PATIENTS WHO ARE OR HAVE BEEN ENROLLED IN A CHEMICAL DEPENDENCY/SUBSTANCEABUSE PROGRAM, SOME INFORMATION MAY BE OMITTED. This clinical summary was aggregated from multiple sources. Caution should be exercised in using it in the provision of clinical care. This summary normalizes information from multiple sources, and as a consequence, information in this document may materially change the coding, format and clinical context of patient data. In addition, data may be omitted in some cases. CLINICAL DECISIONS SHOULD BE BASED ON THE PRIMARY CLINICAL RECORDS. [facility]. provides no warranty or guarantee of the accuracy or completeness of information in this document.
== END | disposition home or self-care (01) ==
LOC: CT 13:10
PROVIDERS: Referring Provider Internal Medicine Medical Oncology; Visit Provider Internal Medicine Medical Oncology
DX: C34.91 Malignant neoplasm of unspecified part of right bronchus or lung (principal)
CPT/HCPCS: 71260; Q9967

== ENCOUNTER → 2024-06-30 | Outpatient (CLI) | payer MEDICARE, MEDICAID, SELFPAY ==
--- NOTE | 2024-06-30 14:54 | CT_ITS ---
STUDY: CT CHEST WITH CONTRAST REASON FOR EXAM: Female, 53 years old. MONITOR LUNG CA RADIATION DOSAGE (If Supplied By Facility): CTDIvol = ( 11.92 ) mGy, DLP = ( 282.60 ) mGycm TECHNIQUE: Transaxial imaging was performed following intravenous administration of IV 100mL Isovue-300. Multiplanar coronal and sagittal images were reformatted. Individualized dose optimization techniques were used for this CT. COMPARISON: Comparison is made with prior study dated December 31, 2023. FINDINGS: CHEST Essentially stable 1.1 cm x 0.8 cm spiculated mass in the medial right lung apex as seen on axial image #28. Once again, there is an irregular scar in the lateral anterior aspect of the right upper lobe. This has increased in size as compared to prior study and presently measures 1.5 cm x 1.1 cm. There is no demonstrated pleural abnormality. No significant coronary artery calcification is seen. Normal mediastinum. Normal hilar regions. Normal unenhanced pulmonary arteries. Normal aorta arch and descending thoracic aorta. There are degenerative changes of the thoracic spine. There is no demonstrated abnormality of the visualized upper abdomen. CT/Chest WITH Contrast IMPRESSION: Stable 1.1 cm x 0.8 cm spiculated nodule in the medial right lung apex. Focal area of scarring in the lateral aspect of the right upper lobe. This has increased minimally in size as compared to prior study. The remainder of the examination is unchanged. Electronically Signed: Rodney Garcia MD at 14:51 EDT ,
== END | disposition home or self-care (01) ==
LOC: CT 14:49
PROVIDERS: Referring Provider Internal Medicine Medical Oncology; Visit Provider Internal Medicine Medical Oncology
DX: C34.11 Malignant neoplasm of upper lobe, right bronchus or lung (principal); R91.1 Solitary pulmonary nodule
CPT/HCPCS: 71260; Q9967

== ENCOUNTER → 2024-12-30 | Outpatient (CLI) | payer MEDICARE, MEDICAID, SELFPAY ==
--- NOTE | 2024-12-30 13:00 | CT_ITS ---
PROCEDURE: CT CHEST AND ABD W/ CONTRAST REASON FOR EXAM: Monitoring lung cancer. Prior radiation. TECHNIQUE: Chest and abdomen CT with intravenous contrast. No oral contrast. CONTRAST: 100 cc of Isovue-300. COMPARISON: Comparison is made with prior study dated June 30, 2024.1 FINDINGS: CT CHEST: Hardware: None. Lymph nodes: No mediastinal, hilar, or axillary lymphadenopathy. Heart and Vasculature: Normal heart size. No pericardial effusion. Thoracic aorta and pulmonary arteries are unremarkable. Lungs and Airways: Essentially stable 1.1 cm x 0.8 cm spiculated nodule in the medial right lung apex as seen on axial image number 20. Once again, there is a irregular scar in the lateral anterior aspect of the right upper lobe. This is unchanged. Stable nodular density of 1.7 cm. Stable mild degree of emphysematous changes. Pleura: No pleural effusion. No pneumothorax. CT ABDOMEN: Liver: Unremarkable. Gallbladder: Minimal degree of gallbladder wall thickening. Spleen: Unremarkable. Pancreas: Unremarkable. Adrenals: Unremarkable. Kidneys: Unremarkable. Bowel: Visualized loops of bowel in the upper abdomen are unremarkable. Lymph nodes: No suspicious lymph node enlargement at the upper abdomen. Vasculature: Major vascular structures at the upper abdomen are unremarkable. Peritoneum / Retroperitoneum: No ascites or free air at the upper abdomen. Bones: Degenerative changes of the spine. CT/CT Chest AND Abd W/ Contrast IMPRESSION: Stable examination. One or more dose reduction techniques were used (e.g., Automated exposure contr ol, adjustment of the mA and/or kV according to patient size, use of iterative reconstruction technique). Reading Location: [id number]
== END | disposition home or self-care (01) ==
PROVIDERS: Referring Provider Internal Medicine Medical Oncology; Visit Provider Internal Medicine Medical Oncology
DX: C34.91 Malignant neoplasm of unspecified part of right bronchus or lung (principal)
CPT/HCPCS: 71260; 74160; Q9967

== ENCOUNTER 2025-02-14 03:19 | Inpatient (IN) | payer MEDICARE, MEDICAID, SELFPAY ==
[2025-02-14] VITALS (14 sets, daily range): BP systolic 104–142; BP diastolic 65–94; PULSE 80–120; RESP 18–39; TEMP 36.1–37.2; O2SAT 61–98; BMI 25.6; BMI 26.0
--- NOTE | 2025-02-14 03:26 | EKG12_ITS ---
Test Reason : Blood Pressure : */* mmHG Vent. Rate : 119 BPM Atrial Rate : 119 BPM P-R Int : 112 ms QRS Dur : 72 ms QT Int : 302 ms P-R-T Axes : 76 99 29 degrees QTcB Int : 424 ms Sinus tachycardia Possible Left atrial enlargement Rightward axis Nonspecific ST abnormality Abnormal ECG Confirmed by IDA KIM, RADHA ([id number]), graphics editor EVELINE AYALA ([id number]) on 02/15/2025 8:39:06 AM Referred By: Confirmed By: RADHA PRIETO MD
--- NOTE | 2025-02-14 03:28 | ED.VIS.DYS ---
HPI History of Present Illness Chief Complaint: Shortness of Breath Informant: patient and spouse/S.O. Narrative Narrative: 54-year-old female presents with shortness of breath over the past 12-24 hours that has been progressively getting worse. Presents at a little after 3 AM. She is been coughing, some sputum but has not coughed up to look at it. Did not taste any blood. She is having chest pressure. She is not on oxygen at home, comes in to triage at 60% on room air and nurses said that she was acting a little disoriented although she denies feeling confused right now. She denies any leg edema. No GI symptoms or abdominal pain. No known history of heart problems. She continues to smoke. She states she sees pulmonary, she is not sure the reason why except for a pulmonary nodule that was found 1 day. She uses no oxygen at home. Has had contact with a granddaughter that they babysit who had a cold recently. [facility] Medical History Wheezing Menorrhagia Depression Bipolar 1 disorder Anxiety Anemia Shortness of breath Home Medications ?Medication ?Instructions ?Recorded ?Last Taken ?Type guaifenesin 1,200 mg tablet, 1,200 mg PO Q12H #60 tabs 08/22/23 Unknown Rx extended release 12 hr mirabegron 25 mg tablet,extended 25 mg PO DAILY 08/22/23 Unknown History release 24 hr (Myrbetriq) albuterol sulfate 90 mcg/actuation 2 inh inhalation Q4H PRN Sob &/Or 05/08/24 Unknown Rx breath activated powder inhaler Wheezing #1 ea budesonide 160 mcg-glycopyr 9 2 inh inhalation BID #10.7 grams 05/08/24 Unknown Rx mcg-formot 4.8 mcg/actuation HFA inhaler (Breztri Aerosphere) montelukast 10 mg tablet 10 mg PO DAILY #30 tabs 05/08/24 Unknown Rx albuterol 90 mcg-budesonide 80 2 inh inhalation 5X/DAY PRN 02/14/25 Unknown History mcg/actuation HFA aerosol inhaler shortness of breath (Airsupra) clobetasol 0.05 % topical cream topical 02/14/25 Unknown History guaifenesin 600 mg tablet, 600 mg PO Q12.TCU 02/14/25 Unknown History extended release 12 hr (Mucus Relief ER) hydroxyzine HCl 25 mg tablet 25 mg PO DAILY 02/14/25 Unknown History solifenacin 5 mg tablet 5 mg PO DAILY 02/14/25 Unknown History triamcinolone acetonide 0.1 % applic topical 02/14/25 Unknown History topical cream Allergy/AdvReac Type Severity Reaction Status Date / Time Penicillins Allergy Unknown Hives Verified 02/14/25 03:22 Sulfa (Sulfonamide Allergy Unknown other Verified 02/14/25 03:22 Antibiotics) Family History Other Hyperlipidemia Surgical History History of tubal ligation Social History Smoking Status: Current every day smoker tobacco type: cigarettes Tobacco: How many years used: 40 alcohol intake: never ROS ROS ED Constitutional Constitutional ED: Reports fever(s) and subjective; Denies chills Eyes Eyes: Denies change in vision or diplopia ENT ENT ED: Denies rhinorrhea or sore throat Cardiovascular Cardiovascular: Reports chest pain; Denies leg edema or palpitations Respiratory/Chest Respiratory/Chest: Reports cough, dyspnea, dyspnea on exertion and sputum Gastrointestinal Gastrointestinal: Denies abdominal pain, diarrhea, nausea or vomiting Genitourinary Genitourinary ED: Denies dysuria or hematuria Musculoskeletal Musculoskeletal: Denies back pain or neck pain Integumentary Denies abscess or rash Neurologic Neurologic: Denies headache(s), paresthesias or weakness Psychiatric Psychiatric: Denies suicidal thoughts EXAM Physical Exam Const Vital Signs: 02/14/25 03:23 02/14/25 03:23 02/14/25 03:26 Temperature 97 F L 97 F L Temperature Source Temporal Temporal Pulse Rate 120 H 119 H 115 H Respiratory Rate 39 H 26 H 30 H Respiratory Effort Respiratory Depth Respiratory Pattern Blood Pressure 142/94 H 142/94 H Blood Pressure Mean 110 110 Pulse Ox 61 97 98 Oxygen Delivery Method Room Air Non-Rebreather Non-Rebreather Oxygen Flow Rate (L/min) 15 15 Fraction of Inspired Oxygen (FIO2) 02/14/25 03:28 02/14/25 03:30 02/14/25 03:47 Temperature Temperature Source Pulse Rate 118 H Respiratory Rate 20 H Respiratory Effort Short of Breath Respiratory Depth Shallow Respiratory Pattern Tachypnea Blood Pressure Blood Pressure Mean Pulse Ox 97 Oxygen Delivery Method High Flow High Flow Oxygen Flow Rate (L/min) 7 7 Fraction of Inspired Oxygen (FIO2) 94 02/14/25 04:26 02/14/25 04:31 Temperature 99 F 99 F Temperature Source Oral Pulse Rate 106 H 106 H Respiratory Rate 30 H 30 H Respiratory Effort Respiratory Depth Respiratory Pattern Blood Pressure 112/65 112/65 Blood Pressure Mean 80 80 Pulse Ox 92 92 Oxygen Delivery Method High Flow Oxygen Flow Rate (L/min) 8 Fraction of Inspired Oxygen (FIO2) Positive well nourished and well developed Constitutional Narrative: Mild respiratory distress General Appearance ED: well developed HEENT Reports moist mucous membranes normocephalic and atraumatic Eyes PERRL and EOMs intact bilaterally Neck full ROM, no lymphadenopathy, supple and no JVD Resp Resp Narrative: Mild respiratory distress, diffuse expiratory wheezes and prolonged expiratory phase, equal breath sounds present bilaterally, no rales or rhonchi heard. Cardio regular rate, regular rhythm and no murmurs Rate: tachycardic GI non-tender and non-distended Auscultation: normoactive bowel sounds Palpation: soft Back/Spine no CVA tenderness General Back: other FROM Extremity normal to inspection General Extremety ED: Negative for edema, pulses abnormal or tenderness General Extremity: Negative for edema or pulses abnormal Neuro oriented x3, CN's II-XII intact bilaterally and no sensory deficits noted Neuro Narrative: Keenly alert GCS 15 Sensorium / Orientation: awake and alert Motor Exam: strength 5/5 throughout Skin no rashes or lesions noted and no wounds MDM MDM MDM Narrative Medical decision making narrative: Patient is in mild respiratory distress, but not fatigued and does not need to be intubated. We gave her nebulizer treatments in the beginning, and supplemental oxygen to get her saturations into the 90s. Solu-Medrol was added. Her labs are noted, they are normal, and her cardiac labs are normal as well. 1 view chest x-ray shows COPD/hyperexpansion, but I see no acute pneumonia, CHF, or pneumothorax. ABG is reassuring, showing no acute hypercapnia. At this time she is on a liter high flow nasal cannula with oxygen saturations at 91%. She is breathing much better after the treatments, and I do not think she needs BiPAP or intubated at this time. COVID/influenza/RSV is negative, but she likely has a different viral infection. I recommended mission to the hospital she is amenable. Lab Data Attestation: I reviewed the patient's lab results. Labs: Laboratory Results - last 24 hr 02/14/25 03:28 WBC 9.0 RBC 4.67 Hgb 15.2 H Hct 44.9 MCV 96.1 MCH 32.5 H MCHC 33.9 RDW Std Deviation 42.8 RDW Coeff of Rosalie 12.1 Plt Count 195 MPV 9.2 Immature Gran % (Auto) 0.300 Neut % (Auto) 71.8 H Lymph % (Auto) 15.3 L [place] % (Auto) 12.0 H Eos % (Auto) 0.2 Baso % (Auto) 0.4 Absolute Neuts (auto) 6.4 Absolute Lymphs (auto) 1.37 Nucleated RBC % 0 Sodium 133 Potassium 4.2 Chloride 97 L Carbon Dioxide 21.3 Anion Gap 15 BUN 9 Creatinine 0.79 Estim Creat Clear Calc 72.44 Est GFR (MDRD) Non-Af 88 BUN/Creatinine Ratio 11.5 Glucose 145 H Calcium 8.3 Troponin T High Sens 13 NT pro BNP II 373 ABG Data Attestation: I personally reviewed and interpreted this ABG as follows: Interpretation: Chronic CO2 retention, compensated ABG results: ABG 02/14/25 04:06 Specimen Type ART Sample Site L Radial pH 7.35 Bicarbonate Actual 25.0 Total CO2 26 Base Excess -1 O2 Saturation 92 L O2 % 8.0 ABG pCO2 45.7 H ABG pO2 66 L Rashad Test Positive O2 Delivery Device Cannula Vent Mode Not entered Radiography Diagnostic Testing: Clinical Impression(s) from Imaging Studies Chest X-Ray 02/14/25 04:00 IMPRESSION: COPD type changes within the lungs. Spiculated mass within the right upper lobe is better assessed on CT. Areas of abnormal scarring seen within the right upper lobe. There are patchy infiltrates at the lung bases which could suggest superimposed pneumonia. No pneumothorax. Reading Location: [id number] Rhythm Strip Rhythm Strip: Sinus Tach Rate: 115 Ectopy: None EKG Initial EKG: Attestation: I personally reviewed and interpreted this EKG as follows: Interpretation: No Acute Injury Pattern, Sinus Tachycardia and Non-Specific ST Changes Management Discussion w/another healthcare provider: Hospitalist Critical Care Time Critical Care Time: Yes Critical care time (excluding procedures): 30-74 minutes (32 min), Including time spent:, Discussing w/Patient &/or Family/Package Dye Stand Loader, Discussing w/Consultants, Arranging Admission or Transfer and Performing Direct Patient Care at Bedside Discharge Plan Dx/Rx/DC Orders Clinical Impression: Acute hypoxic respiratory failure, Acute exacerbation of chronic obstructive pulmonary disease (COPD), Acute bronchitis Disposition Disposition: Acute Care Hospital [facility]
[2025-02-14] MEDS: Ipratropium/Albuterol Sulfate 3 ML AMPUL.NEB INHALATION ×5 (03:29→20:02)
[2025-02-14] MEDS: 0.9% Normal Saline (500mL Bag) 500 ML 999 ML IV (03:30)
[2025-02-14] MEDS: MethylPREDNISolone 125 MG/2 ML Vial IV (03:30)
[2025-02-14] MEDS: Albuterol 2.5 MG/3 ML VIAL.NEB. INHALATION ×2 (03:32→03:55)
[2025-02-14 03:38] LABS: Absolute Lymphocyte Count 1.37 X10^3/uL (0.83-4.51); Absolute Neutrophil Count 6.4 X10^3/uL (2.0-7.7); Basophil# 0.04 X10^3/uL; Basophil% 0.4 % (0-1); Eosinophil# 0.02 X10^3/uL; Eosinophils% 0.2 % (0-5); Hematocrit 44.9 % (37-47); Hemoglobin 15.2 g/dL (12.0-15.0); Lymphocyte # 1.37 X10^3/ul (0.83-4.51); Lymphocyte % 15.3 % (19-41); Mean Corp Hgb Conc 33.9 g/dL (32-36); Mean Corpuscular Hgb 32.5 pg (27.0-32.0); Mean Corpuscular Volume 96.1 fL (81-99); Mean Platelet Vol. 9.2 fl (6.2-12.0); Monocyte# 1.08 X10^3/uL; NRBC Flagged by Analyzer 0 % (0-5); Neutrophil # 6.44 X10^3/uL (2.7-7.7); Neutrophil % 71.8 % (47-70); Platelet Count 195 K/mm3 (150-450); RBC Distribution Width CV 12.1 % (11.6-14.6); RBC Distribution Width SD 42.8 fl (35.1-43.9); Red Blood Count 4.67 M/mm3 (4.2-5.4)
[2025-02-14 03:54] LABS: Anion Gap 15 (5-15); BUN 9 mg/dL (4-19); BUN/Creat Ratio 11.5 RATIO (10-20); Calcium,Total 8.3 mg/dL (7.6-11.0); Carbon Dioxide 21.3 mmol/L (21.0-32.0); Chloride 97 mmol/L (98-108); Creatinine, Serum 0.79 mg/dL (0.70-1.20); EST Glomerular Filtration Rate 88 (>60); Estimated Creatinine Clearance 72.44 ml/min (50-250); Glucose 145 mg/dL (70-99); Potassium 4.2 mmol/L (3.3-5.1); Pro- Brain NATRIURETIC PEPTIDE 373 pg/mL (<=900); Sodium Level 133 mmol/L (133-145); Troponin T High Sensitivity 13 ng/L (<=14)
--- NOTE | 2025-02-14 04:00 | RAD_ITS ---
PROCEDURE: CHEST 1 VIEW (PORTABLE) 02/14/2025 REASON FOR EXAM: SOB TECHNIQUE: Frontal view of the chest. COMPARISON: CT chest with IV contrast dated 12/30/2024. FINDINGS: The cardiac silhouette is borderline prominent. The lungs are hyperlucent and hyperexpanded likely due to COPD type changes. Areas of scarring is present within the right upper lobe. Previously noted spiculated mass within the right upper lung zone is better assessed on CT. There are patchy infiltrates at the lung bases. There is no pneumothorax. RAD/Chest 1 View (Portable) IMPRESSION: COPD type changes within the lungs. Spiculated mass within the right upper lobe is better assessed on CT. Areas of abnormal scarring seen within the right upper lobe. There are patchy infiltrates at the lung bases which could suggest super imposed pneumonia. No pneumothorax. Reading Location: [id number]
[2025-02-14 04:09] LABS: Allen Test Positive; Base Excess -1 mmol/L (-2 to +2); Blood Gas Specimen Type ART; Mode Not entered; O2 Delivery Device Cannula; PO2 66 mmHG (75-100); SITE L Radial; SO2 92 % (95-99); Total Carbon Dioxide 26 mmol/L; pCO2 45.7 mmHg (35-45); pH 7.35 (7.35-7.45)
--- NOTE | 2025-02-14 04:37 | HP.PCM.HOS_ITS ---
HPI - General General Date of Admission: 02/14/25 Date of Service: 02/14/25 Chief Complaint: Shortness of breath HPI Narrative ABDI ORR, is a 54 F who presented to [facility] ED on 02/14/2025 with worsening shortness of breath. Patient has history of COPD, is not on home oxygen. Also has history of right lung adenocarcinoma s/p radiation therapy back in 2019, has been stable on observation since then. Patient began to develop shortness of breath and a dry cough yesterday midday. She monitors her granddaughter regularly and notes that her granddaughter had upper respiratory symptoms recently. Overnight she became significant more short of breath with some chest pressure noted so she came in for further evaluation. In triage her pulse ox was noted to be 60%. She was acting somewhat disoriented at that time and was in mild respiratory distress. She was placed on nonrebreather and given a breathing treatment with fairly quick improvement. Chest x-ray showed hyperinflation but no other abnormalities. CBC and BMP were unremarkable. She was transitioned to high flow nasal cannula, and ABG on this showed pH 7.35, pCO2 45 and PO2 66. COVID/flu/RSV were negative. She was given a dose of IV Solu-Medrol and hospitalist was contacted for admission. I saw the patient at bedside in the ED, was present. Patient was sitting back in bed and breathing comfortably on 8 L high flow nasal cannula. She was somewhat anxious and was asking to go home right now. States she feels significantly better than she did when she came into the ED and wants to go home soon. After further conversation with her and her , she was willing to stay for further treatment for significant COPD exacerbation. She is a current smoker, smokes 1 pack/day or more. Would like a nicotine patch. She denies any fevers or chills. No other acute concerns at this time. [facility] Medical History Wheezing Menorrhagia Depression Bipolar 1 disorder Anxiety Anemia Shortness of breath Home Medications ?Medication ?Instructions ?Recorded ?Last Taken ?Type guaifenesin 1,200 mg tablet, 1,200 mg PO Q12H #60 tabs 08/22/23 Unknown Rx extended release 12 hr mirabegron 25 mg tablet,extended 25 mg PO DAILY Unknown History release 24 hr (Myrbetriq) albuterol sulfate 90 mcg/actuation 2 inh inhalation Q4 H PRN Sob &/Or 05/08/24 Unknown Rx breath activated powder inhaler Wheezing #1 ea budesonide 160 mcg-glycopyr 9 2 inh inhalation BID #10 .7 grams 05/08/24 Unknown Rx mcg-formot 4.8 mcg/actuation HFA inhaler (Breztri Aerosphere) montelukast 10 mg tablet 10 mg PO DAILY #30 tabs 04/27 12/21 Unknown Rx albuterol 90 mcg-budesonide 80 2 inh inhalation 5X/DAY PRN 02/14/25 Unknown History mcg/actuation HFA aerosol inhaler shortness of breath (Airsupra) clobetasol 0.05 % topical cream topical 02/14/25 Unkno wn History guaifenesin 600 mg tablet, 600 mg PO Q12.TCU 02/14/25 Unknown History extended release 12 hr (Mucus Relief ER) hydroxyzine HCl 25 mg tablet 25 mg PO DAILY 02/14/25 U nknown History solifenacin 5 mg tablet 5 mg PO DAILY 02/14/25 Unkno wn History triamcinolone acetonide 0.1 % applic topical 02/14/25 Unknown History topical cream Allergy/AdvReac Type Severity Reaction Status Date / Time Penicillins Allergy Unknown Hives Verified 02/14/25 03:22 Sulfa (Sulfonamide Allergy Unknown other Verified 02/14/25 03:22 Antibiotics) Family History Other Hyperlipidemia Surgical History History of tubal ligation Social History Smoking Status: Current every day smoker tobacco type: cigarettes Tobacco: How many years used: 40 alcohol intake: never ROS Constitutional Constitutional: Reports fatigue; Denies chills, fever(s) or weakness Eyes Eyes: Denies change in vision Cardiovascular Cardiovascular: Denies chest pain or lightheadedness Respiratory/Chest Respiratory/Chest: Reports cough, dyspnea, shortness of breath at rest, shortness of breath with exertion and wheezing; Denies productive cough Gastrointestinal Gastrointestinal: Denies abdominal pain Musculoskeletal Musculoskeletal: Denies arthralgias or myalgias Neurologic Neurologic: Denies dizziness or headache(s) Vital Signs Vital Signs Vital Signs: 02/14/25 03:23 02/14/25 03:23 02/14/25 03:26 Temperature 97 F L 97 F L Temperature Source Temporal Temporal Pulse Rate 120 H 119 H 115 H Respiratory Rate 39 H 26 H 30 H Respiratory Effort Respiratory Depth Respiratory Pattern Blood Pressure 142/94 H 142/94 H Blood Pressure Mean 110 110 Pulse Ox 61 97 98 Oxygen Delivery Method Room Air Non-Rebreather Non-Rebreather Oxygen Flow Rate (L/min) 15 15 Fraction of Inspired Oxygen (FIO2) 02/14/25 03:28 02/14/25 03:30 02/14/25 03:47 Temperature Temperature Source Pulse Rate 118 H Respiratory Rate 20 H Respiratory Effort Short of Breath Respiratory Depth Shallow Respiratory Pattern Tachypnea Blood Pressure Blood Pressure Mean Pulse Ox 97 Oxygen Delivery Method High Flow High Flow Oxygen Flow Rate (L/min) 7 7 Fraction of Inspired Oxygen (FIO2) 94 02/14/25 04:26 02/14/25 04:31 Temperature 99 F 99 F Temperature Source Oral Pulse Rate 106 H 106 H Respiratory Rate 30 H 30 H Respiratory Effort Respiratory Depth Respiratory Pattern Blood Pressure 112/65 112/65 Blood Pressure Mean 80 80 Pulse Ox 92 92 Oxygen Delivery Method High Flow Oxygen Flow Rate (L/min) 8 Fraction of Inspired Oxygen (FIO2) Weight Weight: 65.68 kg Body Mass Index (BMI) 25.6 Physical Exam Const alert and no apparent distress Constitutional Narrative: Middle-aged female, appears older than stated age, mildly anxious appearing, otherwise sitting back comfortably in bed, breathing comfortably on 8 L high flow nasal cannula, conversing normally, in no acute distress. General Appearance: cooperative and comfortable HEENT normocephalic, head/scalp atraumatic, hearing grossly normal bilaterally, nasal mucous membranes and turbinates normal and moist oral mucous membranes Eyes PERRL, EOMs intact bilaterally and conjunctivae normal Neck full ROM Chest inspection of chest normal Resp normal respiratory effort and no use of accessory muscles Resp Narrative: Breathing comfortably on 8 L high flow nasal cannula. Moderate upper airway wheezing noted bilaterally with diminished breath sounds throughout. No crackles noted. Cardio no murmurs and peripheral pulses 2+ throughout Cardio Narrative: Tachycardic, regular rhythm. GI normal to inspection, nondistended, normoactive bowel sounds, soft to palpation, non-tender and non-distended Back/Spine normal ROM Extremity normal to inspection, full ROM and no pedal edema Skin no rashes or lesions noted Psych mental status grossly normal Mood & Affect: anxious Results Lab / Micro Data 02/14/25 03:28 02/14/25 03:28 Labs: Laboratory Results - last 24 hr 02/14/25 03:28: WBC 9.0, RBC 4.67, Hgb 15.2 H, Hct 44.9, MCV 96.1, MCH 32.5 H, MCHC 33.9, RDW Std Deviation 42.8, RDW Coeff of Rosalie 12.1, Plt Count 195, MPV 9.2, Immature Gran % (Auto) 0.300, Neut % (Auto) 71.8 H, Lymph % (Auto) 15.3 L, [place] % (Auto) 12.0 H, Eos % (Auto) 0.2, Baso % (Auto) 0.4, Absolute Neuts (auto) 6.4, Absolute Lymphs (auto) 1.37, Nucleated RBC % 0, Sodium 133, Potassium 4.2, Chloride 97 L, Carbon Dioxide 21.3, Anion Gap 15, BUN 9, Creatinine 0.79, Estim Creat Clear Calc 72.44, Est GFR (MDRD) Non-Af 88, BUN/Creatinine Ratio 11.5, G lucose 145 H, Calcium 8.3, Troponin T High Sens 13, NT pro BNP II 373 Micro: Microbiology 02/14/25 03:32 Mucosa - Nose SARS-CoV-2, Influenza & RSV (PCR) - Final ABG Data ABG results: ABG 02/14/25 04:06 Specimen Type ART Sample Site L Radial pH 7.35 Bicarbonate Actual 25.0 Total CO2 26 Base Excess -1 O2 Saturation 92 L O2 % 8.0 ABG pCO2 45.7 H ABG pO2 66 L Rashad Test Positive O2 Delivery Device Cannula Vent Mode Not entered Rhythm Strip Rhythm Strip: Sinus Tach Rate: 115 Ectopy: None Imaging Radiology Impression Chest X-Ray 02/14/25 04:00 IMPRESSION: COPD type changes within the lungs. Spiculated mass within the right upper lobe is better assessed on CT. Areas of abnormal scarring seen within the right upper lobe. There are patchy infiltrates at the lung bases which could suggest superimposed pneumonia. No pneumothorax. Reading Location: [id number] Assessment & Plan Assessment/Plan (1) Acute hypoxic respiratory failure: (2) Acute exacerbation of chronic obstructive pulmonary disease (COPD): PLAN: Plan Patient is a 54-year-old female who presented to [facility] ED on 02/14/2025 with shortness of breath. 1. Acute hypoxic respiratory failure secondary to acute exacerbation of Asthma- COPD overlap syndrome ? Admit under inpatient status to PCU. Follows with outpatient pulmonology. Not on home oxygen, oxygen saturations 60% on arrival to ED. Chest x-ray with hyperinflation, otherwise unremarkable. COVID/flu/RSV negative but presentation seems consistent with reactive airway disease secondary to viral infection versus allergies. Required up to 15 L nonrebreather, then transition to 8 L high flow nasal cannula in the ED. ABG with pH 7.35, PO2 66, pCO2 45. Will treat with IV steroids and scheduled DuoNebs. Wean supplemental oxygen as able. Continue home long-acting inhalers. 2. Tobacco abuse ? Smokes 1 to 1.5 packs of cigarettes per day. Nicotine patch placed on admit per patient request. Discussed cessation. 3. Bipolar 1 disorder ? Patient with significant anxiety in the ED and was asking to go home despite being on high flow nasal cannula with oxygen saturations in the low 90s. She does not appear to be on any home medications for this. Will order hydroxyzine as needed while inpatient. 4. Right lung adenocarcinoma ? Known history, follows with outpatient pulmonology and oncology. S/p radiation therapy completed in 2019 and has been on observation since then with no worsening of disease. No inpatient needs, continue outpatient follow-up. 5. Overactive bladder ? Continue home mirabegron. DVT prophylaxis: Lovenox CODE STATUS: Full code, verified Expected disposition: Home, 2 to 3 days Total clinical time spent by myself addressing the patient's medical issues, reviewing all the data, and collaborating with patient's care team: 75 minutes. Charges/Coding Visit Charges Inpatient E&M: 29905 Init Hosp L3
[2025-02-14] MEDS: Lorazepam 2 MG/ML WCH Syringe 0.5 MG IV (05:40)
[2025-02-14 06:47] LABS: Troponin T High Sens 2 HR 10 ng/L (<=14)
[2025-02-14 07:25] LABS: Hematocrit 42.9 % (37-47); Hemoglobin 14.6 g/dL (12.0-15.0); Mean Corpuscular Hgb 33.2 pg (27.0-32.0); Mean Corpuscular Volume 97.5 fL (81-99); Mean Platelet Vol. 9.4 fl (6.2-12.0); Platelet Count 182 K/mm3 (150-450); RBC Distribution Width CV 12.1 % (11.6-14.6); RBC Distribution Width SD 43.8 fl (35.1-43.9)
[2025-02-14 08:02] LABS: Troponin T High Sens 4 HR 9 ng/L (<=14)
[2025-02-14 08:05] LABS: Anion Gap 12 (5-15); BUN 8 mg/dL (4-19); BUN/Creat Ratio 12.6 RATIO (10-20); Calcium,Total 8.5 mg/dL (7.6-11.0); Chloride 103 mmol/L (98-108); Creatinine, Serum 0.67 mg/dL (0.70-1.20); EST Glomerular Filtration Rate 103 (>60); Estimated Creatinine Clearance 82.74 ml/min (50-250); Glucose 154 mg/dL (70-99); Potassium 4.1 mmol/L (3.3-5.1); Sodium Level 138 mmol/L (133-145)
--- NOTE | 2025-02-14 11:37 | PN_ITS ---
Subjective Subjective Patient seen and examined. She was quite lethargic. Unable to do review of systems due to her lethargy. She is on 3L of oxygen by nasal canula. Objective Data Objective Data Vital Signs: Vital Signs Temp Pulse Resp BP Pulse Ox O2 Del Method O2 Flow Rate 97.4 F L 89 20 H 104/74 91 Nasal Cannula 3 02/14/25 07:55 02/14/25 10:10 02/14/25 10:10 02/14/25 07:55 02/14/25 10:10 02/14/25 10:10 02/14/25 10:10 FiO2 95 02/14/25 07:56 Oxygen Flow Rate (L/min) 3 Oxygen Delivery Method Nasal Cannula Weight: 142 lb 6.698 oz Body Mass Index (BMI) 26.0 Intake & Output: Intake and Output for Last 24 Hours 02/12/25 02/13/25 02/14/25 23:59 23:59 23:59 Intake Total 500 / 500 Balance 500 / 500 Lab / Micro Data 02/14/25 07:00 02/14/25 07:00 Labs: Laboratory Results - last 24 hr 02/14/25 03:28: WBC 9.0, RBC 4.67, Hgb 15.2 H, Hct 44.9, MCV 96.1, MCH 32.5 H, MCHC 33.9, RDW Std Deviation 42.8, RDW Coeff of Rosalie 12.1, Plt Count 195, MPV 9.2, Immature Gran % (Auto) 0.300, Neut % (Auto) 71.8 H, Lymph % (Auto) 15.3 L, [place] % (Auto) 12.0 H, Eos % (Auto) 0.2, Baso % (Auto) 0.4, Absolute Neuts (auto) 6.4, Absolute Lymphs (auto) 1.37, Nucleated RBC % 0, Sodium 133, Potassium 4.2, Chloride 97 L, Carbon Dioxide 21.3, Anion Gap 15, BUN 9, Creatinine 0.79, Estim Creat Clear Calc 72.44, Est GFR (MDRD) Non-Af 88, BUN/Creatinine Ratio 11.5, G lucose 145 H, Calcium 8.3, Troponin T High Sens 13, NT pro BNP II 373 02/14/25 05:30: Troponin T Hi Sens 2 Hr 10 02/14/25 07:00: WBC 8.0, RBC 4.40, Hgb 14.6, Hct 42.9, MCV 97.5, MCH 33.2 H, MCHC 34.0, RDW Std Deviation 43.8, RDW Coeff of Rosalie 12.1, Plt Count 182, MPV 9.4, Sodium 138, Potassium 4.1, Chloride 103, Carbon Dioxide 23.0, Anion Gap 12, BUN 8, Creatinine 0.67 L, Estim Creat Clear Calc 82.74, Est GFR (MDRD) Non-Af 103, BUN/Creatinine Ratio 12.6, Glucose 154 H, Calcium 8.5, Troponin T Hi Sens 4Hr 9 Micro: Microbiology 02/14/25 05:40 Mucosa - Nasopharyngeal Respiratory Panel (PCR) - Final Human [place] 02/14/25 03:32 Mucosa - Nose SARS-CoV-2, Influenza & RSV (PCR) - Final ABG Data ABG results: ABG 02/14/25 04:06 Specimen Type ART Sample Site L Radial pH 7.35 Bicarbonate Actual 25.0 Total CO2 26 Base Excess -1 O2 Saturation 92 L O2 % 8.0 ABG pCO2 45.7 H ABG pO2 66 L Rashad Test Positive O2 Delivery Device Cannula Vent Mode Not entered Radiography Diagnostic Testing: Radiology Impression Chest X-Ray 02/14/25 04:00 IMPRESSION: COPD type changes within the lungs. Spiculated mass within the right upper lobe is better assessed on CT. Areas of abnormal scarring seen within the right upper lobe. There are patchy infiltrates at the lung bases which could suggest superimposed pneumonia. No pneumothorax. Reading Location: [id number] Rhythm Strip Rhythm Strip: Sinus Tach Rate: 115 Ectopy: None Physical Exam Const Orientation / Consciousness: lethargic HEENT normocephalic, head/scalp atraumatic, moist oral mucous membranes and oropharynx normal Eyes PERRL and EOMs intact bilaterally Neck no lymphadenopathy and supple Lymph Lymphatic: no lymphadenopathy noted Resp Resp Narrative: mildly diminished breath sounds bibasally, no wheezes or crackles. on 3L of oxygen by nasal canula Cardio regular rate, regular rhythm, S1 normal heart sound, S2 normal heart sound and no murmurs GI normal to inspection, nondistended, normoactive bowel sounds, soft to palpation, non-tender and non-distended Extremity normal capillary refill, no clubbing, cyanosis or edema and no calf tenderness General Extremity: no tenderness to palpation of joints or extremities Skin General Skin Exam: no breakdown Neuro CN's II-XII intact bilaterally, no focal motor deficits and no sensory deficits noted Motor Exam: strength 5/5 throughout and general weakness Psych thought process normal, cooperative and affect normal Appearance: appropriate Assessment & Plan Assessment/Plan (1) Acute exacerbation of chronic obstructive pulmonary disease (COPD): (2) Acute hypoxic respiratory failure: (3) Acute bronchitis: PLAN: Plan #Hypoxia due to acute COPD exacerbation and human metapneumovirus * on 3L of oxygen; was requiring up to 15L of oxygen on admission * on IV solumedrol and breathing treatment with bronchodilators * titrate oxygen to maintain sats >90% * troponins were negative * respiratory panel negative * #URTI due to human metapneumovirus * management as above * #Right lung adenocarcinoma * follows with pulmonology and oncology. Had radiation therapy in 2019. * #Bipolar disorder: * does not appear to be on any medications for this. * To follow up with her PCP on outpatient basis for referral to Psych as needed. * #History of overactive bladder: on mirabegron DVT prophylaxis: lovenox Charges/Coding Visit Charges Inpatient E&M: 31523 Subs Hosp L2
[2025-02-14] MEDS: Enoxaparin 40 MG/0.4 ML Syringe SC (13:06)
[2025-02-14] MEDS: Montelukast 10 MG Tablet PO (13:06)
[2025-02-14] MEDS: guaiFENesin 600 MG Tablet PO ×2 (13:06→21:03)
[2025-02-14] MEDS: Vibegron 75 MG TABLET PO (13:06)
[2025-02-14] MEDS: Methylprednisolone Sod Succ 40 MG/ML VIAL IV ×2 (13:07→21:03)
[2025-02-14] MEDS: hydrOXYzine 10 MG Tablet PO (21:03)
[2025-02-14] MEDS: 0.9% Saline Lock 10 ML Syringe IV (21:03)
[2025-02-14] MEDS: MELATONIN 3 MG TABLET PO (21:03)
[2025-02-15] VITALS (20 sets, daily range): BP systolic 111–138; BP diastolic 65–97; PULSE 84–116; RESP 18–29; TEMP 36.2–36.9; O2SAT 86–98
[2025-02-15 05:53] LABS: Absolute Lymphocyte Count 0.57 X10^3/uL (0.83-4.51); Absolute Neutrophil Count 7.7 X10^3/uL (2.0-7.7); Basophil# 0.02 X10^3/uL; Basophil% 0.2 % (0-1); Hematocrit 40.3 % (37-47); Hemoglobin 14.1 g/dL (12.0-15.0); Lymphocyte # 0.57 X10^3/ul (0.83-4.51); Lymphocyte % 6.5 % (19-41); Mean Corpuscular Hgb 33.2 pg (27.0-32.0); Mean Corpuscular Volume 94.8 fL (81-99); Mean Platelet Vol. 9.7 fl (6.2-12.0); Monocyte% 5.7 % (0-10); NRBC Flagged by Analyzer 0 % (0-5); Neutrophil # 7.68 X10^3/uL (2.7-7.7); POSITIVE DIFFERENTIAL YES; Platelet Count 178 K/mm3 (150-450); RBC Distribution Width CV 11.9 % (11.6-14.6); RBC Distribution Width SD 41.4 fl (35.1-43.9); Red Blood Count 4.25 M/mm3 (4.2-5.4); White Blood Count 8.8 K/mm3 (4.4-11.0)
[2025-02-15] MEDS: 0.9% Saline Lock 10 ML Syringe IV ×3 (05:59→21:59)
[2025-02-15] MEDS: Methylprednisolone Sod Succ 40 MG/ML VIAL IV ×3 (05:59→21:55)
[2025-02-15 06:16] LABS: Anion Gap 11 (5-15); BUN 11 mg/dL (4-19); Calcium,Total 8.9 mg/dL (7.6-11.0); Carbon Dioxide 22.5 mmol/L (21.0-32.0); Chloride 104 mmol/L (98-108); Creatinine, Serum 0.59 mg/dL (0.70-1.20); EST Glomerular Filtration Rate 106 (>60); Estimated Creatinine Clearance 93.96 ml/min (50-250); Glucose 146 mg/dL (70-99); Potassium 4.4 mmol/L (3.3-5.1); Sodium Level 137 mmol/L (133-145)
[2025-02-15] MEDS: Ipratropium/Albuterol Sulfate 3 ML AMPUL.NEB INHALATION ×3 (06:38→20:30)
--- NOTE | 2025-02-15 07:53 | PCM.PN.HOSP ---
Reason for Visit Reason for Visit: Shortness of breath Subjective Subjective The patient reports that she is feeling better than she did earlier this morning and has been able to come down her oxygen. She felt very tight winded this morning. Has a history of right-sided lung adenocarcinoma and has had radiation back in 2019. Has ongoing observation with no worsening of her disease currently. Was diagnosed with human metapneumovirus and states that her sputum production has not changed at all. She states she is hardly coughing up anything. Seems that this is all related to acute exacerbation of COPD. She is still smoking and states that she would like to cut back but not quit. I highly recommended to her that she quit altogether. Objective Data Objective Data Vital Signs: Vital Signs Temp Pulse Resp BP Pulse Ox O2 Del Method O2 Flow Rate 98.0 F 84 20 H 120/81 H 91 High Flow 10 02/15/25 03:00 02/15/25 06:39 02/15/25 06:39 02/15/25 03:00 02/15/25 06:39 02/15/25 06:39 02/15/25 06:39 FiO2 95 02/14/25 07:56 Oxygen Flow Rate (L/min) 10 Oxygen Delivery Method High Flow Weight: 64.6 kg Body Mass Index (BMI) 26.0 Intake & Output: Intake and Output for Last 24 Hours 02/13/25 02/14/25 02/15/25 23:59 23:59 23:59 Intake Total 1420 / 1420 120 / 120 Balance 1420 / 1420 120 / 120 Lab / Micro Data 02/15/25 05:23 02/15/25 05:23 Labs: Laboratory Results - last 24 hr 02/14/25 07:00: Sodium 138, Potassium 4.1, Chloride 103, Carbon Dioxide 23.0, Anion Gap 12, BUN 8, Creatinine 0.67 L, Estim Creat Clear Calc 82.74, Est GFR (MDRD) Non-Af 103, BUN/Creatinine Ratio 12.6, Glucose 154 H, Calcium 8.5, Troponin T Hi Sens 4Hr 9 02/15/25 05:23: WBC 8.8, RBC 4.25, Hgb 14.1, Hct 40.3, MCV 94.8, MCH 33.2 H, MCHC 35.0, RDW Std Deviation 41.4, RDW Coeff of Rosalie 11.9, Plt Count 178, MPV 9.7, Immature Gran % (Auto) 0.600, Neut % (Auto) 87.0 H, Lymph % (Auto) 6.5 L, [place] % (Auto) 5.7, Eos % (Auto) 0.0, Baso % (Auto) 0.2, Absolute Neuts (auto) 7.7, Absolute Lymphs (auto) 0.57 L, Nucleated RBC % 0, Sodium 137, Potassium 4.4, Chloride 104, Carbon Dioxide 22.5, Anion Gap 11, BUN 11, Creatinine 0.59 L, Estim Creat Clear Calc 93.96, Est GFR (MDRD) Non-Af 106, BUN/Creatinine Ratio 19.0, Glucose 146 H, Calcium 8.9 Micro: Microbiology 02/14/25 05:40 Mucosa - Nasopharyngeal Respiratory Panel (PCR) - Final Human [place] 02/14/25 03:32 Mucosa - Nose SARS-CoV-2, Influenza & RSV (PCR) - Final Rhythm Strip Rhythm Strip: Sinus Tach Rate: 115 Ectopy: None Physical Exam Const alert, oriented x3, no apparent distress and average body habitus; Negative for healthy appearing Constitutional Narrative: Middle-aged, white female, appears much older than stated age HEENT head/scalp atraumatic and moist oral mucous membranes Head and Scalp: normocephalic Resp No normal respiratory effort, no retractions and no use of accessory muscles Resp Narrative: Tachypnea, diffuse scattered end expiratory and inspiratory wheeze but no signs of extremis Auscultation: wheezes; Negative for crackles or rhonchi Cardio regular rhythm, S1 normal heart sound, S2 normal heart sound, no murmurs, no rub, no gallops and no clicks Cardio Narrative: Mild tachycardia but regular GI normal to inspection, nondistended, normoactive bowel sounds, soft to palpation and non-tender Extremity no clubbing, cyanosis or edema Extremity Narrative: 2+ pedal pulses Neuro oriented x3 and moves all extremities Speech: speech normal Psych affect normal Psych Narrative: Eye contact is good and patient interacts appropriately Assessment & Plan Assessment/Plan (1) Acute hypoxic respiratory failure: (2) Infection due to human metapneumovirus (hMPV): (3) Hyperglycemia: (4) Acute exacerbation of chronic obstructive pulmonary disease (COPD): PLAN: Plan Acute hypoxic respiratory failure secondary to COPD exacerbation due to human metapneumovirus infection -CTA done today due to worsening respiratory status and was negative for PE but does show increased size of the right upper lobe spiculated pulmonary nodules and stable moderate emphysematous changes -Patient has ongoing outpatient follow-up - No infiltrate noted on imaging - Supportive care for COPD exacerbation - Mucinex 1200 p.o. twice daily - Solu-Medrol 40 every 8 - As needed and scheduled nebulizers - Acapella as ordered - Incentive spirometry as ordered - Continue supplemental oxygen has been up to 15 L today maximally - Wean as able - Will need ambulatory pulse ox prior to discharge - Check sputum culture if able to produce Right upper lobe mass with history of non-small cell lung CA (adenocarcinoma) -T1c N0 M0 Stage IA -PFTs was suboptimal so was not a surgical candidate -Received SBRT at [facility] 06/10/2020 to 06/20/2020 - Has been following as an outpatient - Will refer back for reevaluation after discharge given report on CT - Last oncology appointment was 01/07/2025 Hyperglycemia -mild and appears to be stable -Will check hemoglobin A1c - No SSI for now -Anticipate elevation is related to steroids currently Bipolar disorder -reported bipolar disorder however patient is not on medications - Recommend outpatient follow-up - Continue home hydroxyzine Overactive bladder - Continue home medications - Outpatient follow-up Tobacco abuse - Ongoing -highly recommend cessation however patient states she just wants to cut back - Start nicotine patch next-highly recommended complete cessation on discussion with patient today DVT prophylaxis -continue subcu enoxaparin CODE STATUS -Full code was verified on admission Charges/Coding Visit Charges Inpatient E&M: 06441 Subs Hosp L2
--- NOTE | 2025-02-15 08:20 | CT_ITS ---
PROCEDURE: CTA CHEST W/WO CONTRAST 02/15/2025 REASON FOR EXAM: HYPOXIA TECHNIQUE: CTA axial imaging of the chest with intravenous contrast. Coronal and Sagittal reconstruction series were provided. 3D, 3D post processing, 3D reconstructions, Maximum intensity projection (MIPs) Volume rendering and Shaded surface rendering was provided. PATIENT PREPARATION: Per protocol CONTRAST: Isovue 370 VOLUME: 100 mL One or more dose reduction techniques were used (e.g., Automated exposure control, adjustment of the mA and/or kV according to patient size, use of iterative reconstruction technique). RADIATION DOSE SUMMARY: CTDlvol: 6 mGy DLP: 230 mGycm COMPARISON: CT chest and abdomen 12/30/2024. FINDINGS: Hardware: None. Lymph nodes: No axillary, mediastinal or hilar lymphadenopathy. Heart: The heart is normal in size without pericardial effusion. Mild coronary artery and thoracic aortic calcifications. The great vessels are normal in caliber. Pulmonary Vessels: Visualization is limited by motion artifact. No central filling defect within the segmental pulmonary arteries. Lungs and Airways: Retained secretions within the main trachea. Visualization of the lung parenchyma is slightly limited by motion artifact. Increased size of the spiculated nodules within the right upper lobe, now measuring 2.1 cm (series 2, image 203), previously 2.0 cm, and 1.5 cm (series 2, image 233), previously 1.3 cm. Additional tiny pulmonary nodules throughout the bilateral lungs. Stable moderate emphysema. No pleural effusion or pneumothorax. Upper Abdomen: Thickening of the left adrenal gland. Calcification of the abdominal aorta. Bones: Mild spondylosis of the thoracic aorta. CT/CTA Chest W/WO Contrast IMPRESSION: 1. No acute pulmonary embolism within the segmental pulmonary arteries. Visual ization is limited by motion artifact. 2. Slight increased size of the right upper lobe spiculated pulmonary nodules, concerning for recurrent/residual pulmonary neoplasm. If clinically indicated, PET-CT and/or biopsy is recommended for fur ther evaluation. 3. Stable moderate emphysema. Reading Location: [id number]
[2025-02-15] MEDS: Furosemide 40 MG/4 ML Vial IV (08:46)
[2025-02-15] MEDS: Enoxaparin 40 MG/0.4 ML Syringe SC (08:47)
[2025-02-15] MEDS: Vibegron 75 MG TABLET PO (08:47)
[2025-02-15] MEDS: Montelukast 10 MG Tablet PO (08:47)
[2025-02-15] MEDS: guaiFENesin 1,200 MG Tablet 1200 MG PO ×2 (08:47→21:55)
[2025-02-15 10:16] LABS: Allen Test Positive; Base Excess 5 mmol/L (-2 to +2); Bicarbonate 29.3 mmol/L (22-26); Blood Gas Specimen Type ART; Mode Not entered; O2 Delivery Device HFNC; PO2 67 mmHG (75-100); SITE R Radial; SO2 93 % (95-99); Total Carbon Dioxide 31 mmol/L; pCO2 46.1 mmHg (35-45); pH 7.41 (7.35-7.45)
--- NOTE | 2025-02-15 11:30 | CASEMGMT ---
DARYL HAND Face to Face with patient for initial transition planning/care coordination assessment. RN CM introduced self and role at [facility]. Patient lying in bed, alert and oriented, significant other at bedside. Patient willing to participate in assessment and is able to answer all questions appropriately. Care providers, pharmacy, and demographics verified. Strata: 2 PCP: Andrey Specialists: [facility] Preferred Pharmacy: [facility] Insurance: [employer] Prescription Benefit: yes Living Will/HPOA: none LNOK: significant other Living Arrangements: Patient lives with significant other in a single story duplex with no steps to enter. Patient states she is independent at home. Transportation: self, significant other DME/HHC: Patient has cane and nebulizer at home. No previous HHC or SNF. Will monitor for home oxygen at discharge, prefers [employer]. Patient wishes to discharge home, denies need for home health at this time. Patient states she has no further needs or concerns at this time. CM to follow for discharge planning needs that may arise. Disposition Plan: Patient to discharge home with family support and follow-up plans in place. Will monitor for home oxygen. Jannet GORMAN, RN, CM
[2025-02-15] MEDS: Nystatin/Triamcin Cream Tube 1 APPLIC TOPICAL (21:59)
[2025-02-15] MEDS: MELATONIN 3 MG TABLET PO (22:18)
[2025-02-16] VITALS (19 sets, daily range): BP systolic 103–138; BP diastolic 61–77; PULSE 86–121; RESP 18–29; TEMP 36.3–36.9; O2SAT 82–99
[2025-02-16] MEDS: Ipratropium/Albuterol Sulfate 3 ML AMPUL.NEB INHALATION ×5 (00:35→20:10)
[2025-02-16] MEDS: 0.9% Saline Lock 10 ML Syringe IV ×2 (05:52→14:46)
[2025-02-16] MEDS: Methylprednisolone Sod Succ 40 MG/ML VIAL IV ×3 (05:52→21:41)
--- NOTE | 2025-02-16 07:21 | PCM.PN.HOSP ---
Reason for Visit Reason for Visit: Shortness of breath Subjective Subjective Patient states she is feeling much better today. Oxygen has been able to be weaned down to 4 L today. At the time of my evaluation she was satting 97% 4 L so I weaned her to 3 L. Patient states her breathing is much better. States that she is having quite a bit of coughing and she was given something at the cancer center and would like to go back on that if possible. She is unclear what it is and I told her I would try to figure this out and order it for her. Objective Data Objective Data Vital Signs: Vital Signs Temp Pulse Resp BP Pulse Ox O2 Del Method O2 Flow Rate 98.1 F 86 18 118/67 96 High Flow 4 02/16/25 03:55 02/16/25 03:55 02/16/25 03:55 02/16/25 03:55 02/16/25 03:55 02/16/25 03:55 02/16/25 03:55 FiO2 95 02/14/25 07:56 Oxygen Flow Rate (L/min) 4 Oxygen Delivery Method High Flow Weight: 64.6 kg Body Mass Index (BMI) 26.0 Intake & Output: Intake and Output for Last 24 Hours 02/14/25 02/15/25 02/16/25 23:59 23:59 23:59 Intake Total 1420 / 1420 1870 / 1870 Balance 1420 / 1420 1870 / 1870 Lab / Micro Data 02/16/25 06:48 02/16/25 06:48 Micro: Microbiology 02/14/25 05:40 Mucosa - Nasopharyngeal Respiratory Panel (PCR) - Final Human [place] 02/14/25 03:32 Mucosa - Nose SARS-CoV-2, Influenza & RSV (PCR) - Final ABG Data ABG results: ABG 02/15/25 10:13 Specimen Type ART Sample Site R Radial pH 7.41 Bicarbonate Actual 29.3 H Total CO2 31 Base Excess 5 H O2 Saturation 93 L O2 % 15.0 ABG pCO2 46.1 H ABG pO2 67 L Rashad Test Positive O2 Delivery Device HFNC Vent Mode Not entered Radiography Diagnostic Testing: Radiology Impression Chest CTA 02/15/25 08:20 IMPRESSION: 1. No acute pulmonary embolism within the segmental pulmonary arteries. Visualization is limited by motion artifact. 2. Slight increased size of the right upper lobe spiculated pulmonary nodules, concerning for recurrent/residual pulmonary neoplasm. If clinically indicated, PET-CT and/or biopsy is recommended for further evaluation. 3. Stable moderate emphysema. Reading Location: [facility] Rhythm Strip Rhythm Strip: Sinus Tach Rate: 115 Ectopy: None Physical Exam Const alert, oriented x3, no apparent distress, average body habitus and well nourished; Negative for healthy appearing Constitutional Narrative: Middle-aged, white female, appears much older than stated age General Appearance: cooperative and comfortable HEENT normocephalic and head/scalp atraumatic HEENT Narrative: Dentition is poor, no thrush Resp normal respiratory effort, no retractions and no use of accessory muscles Resp Narrative: diffuse scattered end expiratory and inspiratory wheeze-still present but improved Auscultation: wheezes; Negative for crackles or rhonchi Cardio regular rhythm, S1 normal heart sound, S2 normal heart sound, no murmurs, no rub, no gallops and no clicks Cardio Narrative: Mild tachycardia but regular GI normal to inspection, nondistended, normoactive bowel sounds, soft to palpation and non-tender Extremity no clubbing, cyanosis or edema Extremity Narrative: 2+ pedal pulses Neuro oriented x3 and moves all extremities Speech: speech normal Psych mental status grossly normal, thought process normal, cooperative and affect normal Psych Narrative: Eye contact is good and patient interacts appropriately Appearance: appropriate Mood & Affect: anxious Assessment & Plan Assessment/Plan (1) Acute hypoxic respiratory failure: (2) Infection due to human metapneumovirus (hMPV): (3) Hyperglycemia: (4) Acute exacerbation of chronic obstructive pulmonary disease (COPD): PLAN: Plan Acute hypoxic respiratory failure secondary to COPD exacerbation due to human metapneumovirus infection - No infiltrate noted on imaging however sputum culture does show gram negative cocci bacillus on the Gram stain -Finalized cultures pending - Supportive care for COPD exacerbation -Continue Mucinex 1200 p.o. twice daily -Continue Solu-Medrol 40 every 8 -Continue as needed and scheduled nebulizers -Continue Acapella -Continue I-S as ordered -Oxygen has been weaned from 15 L to 3 L - Continue to wean as able - Will need ambulatory pulse ox prior to discharge -Sputum culture Gram stain shows gram-negative cocci bacillus - Will cover for haemophilus influenza pneumonia and utilize ceftriaxone 1 g daily with first dose being given today - Add Vik Berry scheduled for cough Right upper lobe mass with history of non-small cell lung CA (adenocarcinoma) -T1c N0 M0 Stage IA -PFTs was suboptimal so was not a surgical candidate -Received SBRT at [facility] 06/10/2020 to 06/20/2020 - Has been following as an outpatient - Will refer back for reevaluation after discharge given report on CT - Last oncology appointment was 01/07/2025 Hyperglycemia -mild and appears to be stable -A1c is 5.7 so she does show some insulin resistance but not diabetes -Anticipate acute elevation is related to steroids currently Bipolar disorder -reported bipolar disorder however patient is not on medications - Recommend outpatient follow-up - Continue home hydroxyzine Overactive bladder - Continue home medications - Outpatient follow-up Tobacco abuse - Ongoing -highly recommend cessation however patient states she just wants to cut back -Continue nicotine patch - Complete cessation discussed with patient DVT prophylaxis -continue subcu enoxaparin CODE STATUS -Full code was verified on admission Charges/Coding Visit Charges Inpatient E&M: 17552 Subs Hosp L2
[2025-02-16 07:52] LABS: Absolute Lymphocyte Count 0.52 X10^3/uL (0.83-4.51); Absolute Neutrophil Count 8.6 X10^3/uL (2.0-7.7); Basophil# 0.02 X10^3/uL; Basophil% 0.2 % (0-1); Hematocrit 40.2 % (37-47); Hemoglobin 13.8 g/dL (12.0-15.0); Lymphocyte # 0.52 X10^3/ul (0.83-4.51); Lymphocyte % 5.2 % (19-41); Mean Corp Hgb Conc 34.3 g/dL (32-36); Mean Corpuscular Hgb 32.7 pg (27.0-32.0); Mean Corpuscular Volume 95.3 fL (81-99); Monocyte# 0.65 X10^3/uL; Monocyte% 6.5 % (0-10); NRBC Flagged by Analyzer 0 % (0-5); Neutrophil # 8.64 X10^3/uL (2.7-7.7); Neutrophil % 86.6 % (47-70); POSITIVE DIFFERENTIAL YES; Platelet Count 232 K/mm3 (150-450); RBC Distribution Width CV 12.1 % (11.6-14.6); RBC Distribution Width SD 42.4 fl (35.1-43.9); Red Blood Count 4.22 M/mm3 (4.2-5.4)
[2025-02-16 08:28] LABS: Hemoglobin A1c 5.7 % (<=5.6)
[2025-02-16 08:38] LABS: ALB/GLOB Ratio 1.2 RATIO (0.9-2.4); AST(SGOT) 24 U/L (<=31); Alanine Aminotransfer ALT/SGPT 20 U/L (<=34); Albumin, Serum 3.6 g/dL (3.5-5.0); Alkaline Phosphatase 66 U/L (35-104); Anion Gap 12 (5-15); BUN 15 mg/dL (4-19); BUN/Creat Ratio 22.5 RATIO (10-20); Calcium,Total 8.8 mg/dL (7.6-11.0); Carbon Dioxide 26.6 mmol/L (21.0-32.0); Chloride 99 mmol/L (98-108); Creatinine, Serum 0.66 mg/dL (0.70-1.20); EST Glomerular Filtration Rate 103 (>60); Estimated Creatinine Clearance 83.99 ml/min (50-250); Glucose 150 mg/dL (70-99); Potassium 4.2 mmol/L (3.3-5.1); Protein, Total 6.7 g/dL (5.9-8.4); Sodium Level 138 mmol/L (133-145); Total Bilirubin < 0.15 mg/dL (0.00-1.30)
[2025-02-16] MEDS: Enoxaparin 40 MG/0.4 ML Syringe SC (10:24)
[2025-02-16] MEDS: Vibegron 75 MG TABLET PO (10:25)
[2025-02-16] MEDS: Montelukast 10 MG Tablet PO (10:25)
[2025-02-16] MEDS: guaiFENesin 1,200 MG Tablet 1200 MG PO ×2 (10:25→21:41)
[2025-02-16] MEDS: Nystatin/Triamcin Cream Tube 1 APPLIC TOPICAL ×2 (10:26→21:41)
[2025-02-16] MEDS: Ceftriaxone 1 GM/50 ML BAG IV (14:44)
[2025-02-16] MEDS: Benzonatate 100 MG Capsule PO ×2 (14:44→21:41)
[2025-02-16] MEDS: MELATONIN 3 MG TABLET PO (21:41)
[2025-02-17] VITALS (12 sets, daily range): BP systolic 115–146; BP diastolic 73–104; PULSE 80–122; RESP 18–26; TEMP 36.6–36.8; O2SAT 87–94
[2025-02-17] MEDS: Ipratropium/Albuterol Sulfate 3 ML AMPUL.NEB INHALATION ×5 (01:38→19:48)
[2025-02-17] MEDS: 0.9% Saline Lock 10 ML Syringe IV ×3 (05:40→14:10)
[2025-02-17] MEDS: Methylprednisolone Sod Succ 40 MG/ML VIAL IV ×2 (05:40→14:10)
[2025-02-17] MEDS: Benzonatate 100 MG Capsule PO ×2 (05:40→14:10)
[2025-02-17 06:17] LABS: Absolute Lymphocyte Count 0.57 X10^3/uL (0.83-4.51); Absolute Neutrophil Count 7.9 X10^3/uL (2.0-7.7); Basophil# 0.01 X10^3/uL; Basophil% 0.1 % (0-1); Hematocrit 40.8 % (37-47); Hemoglobin 13.7 g/dL (12.0-15.0); Lymphocyte # 0.57 X10^3/ul (0.83-4.51); Lymphocyte % 6.1 % (19-41); Mean Corp Hgb Conc 33.6 g/dL (32-36); Mean Corpuscular Hgb 32.5 pg (27.0-32.0); Mean Corpuscular Volume 96.9 fL (81-99); Monocyte# 0.73 X10^3/uL; Monocyte% 7.9 % (0-10); NRBC Flagged by Analyzer 0 % (0-5); Neutrophil # 7.92 X10^3/uL (2.7-7.7); Neutrophil % 85.4 % (47-70); POSITIVE DIFFERENTIAL YES; Platelet Count 239 K/mm3 (150-450); RBC Distribution Width CV 12.1 % (11.6-14.6); RBC Distribution Width SD 42.9 fl (35.1-43.9); Red Blood Count 4.21 M/mm3 (4.2-5.4); White Blood Count 9.3 K/mm3 (4.4-11.0)
[2025-02-17] MEDS: Ceftriaxone 1 GM/50 ML BAG IV (10:49)
[2025-02-17] MEDS: Enoxaparin 40 MG/0.4 ML Syringe SC (10:49)
[2025-02-17] MEDS: Vibegron 75 MG TABLET PO (10:49)
[2025-02-17] MEDS: Montelukast 10 MG Tablet PO (10:50)
[2025-02-17] MEDS: guaiFENesin 1,200 MG Tablet 1200 MG PO (10:50)
[2025-02-17] MEDS: Nystatin/Triamcin Cream Tube 1 APPLIC TOPICAL (10:51)
[2025-02-17] MEDS: Polyethylene Glycol 3350 17 GM PACKET PO (12:21)
--- NOTE | 2025-02-17 18:59 | PCM.PN.HOSP ---
Reason for Visit Reason for Visit: Shortness of breath Subjective Subjective Patient states she is feeling okay. Continues to feel better. Denies any problems overnight. Still on some oxygen. Objective Data Objective Data Vital Signs: Vital Signs Temp Pulse Resp BP Pulse Ox O2 Del Method O2 Flow Rate 97.9 F 104 H 24 H 132/75 H 90 Nasal Cannula 3 02/17/25 11:03 02/17/25 15:11 02/17/25 15:11 02/17/25 11:03 02/17/25 11:03 02/17/25 14:15 02/17/25 14:15 FiO2 95 02/14/25 07:56 Oxygen Flow Rate (L/min) 3 Oxygen Delivery Method Nasal Cannula Weight: 64.6 kg Body Mass Index (BMI) 26.0 Intake & Output: Intake and Output for Last 24 Hours 02/15/25 02/16/25 02/17/25 23:59 23:59 23:59 Intake Total 1870 / 1870 550 / 550 650 / 650 Output Total 500 / 500 Balance 1870 / 1870 550 / 50 150 / 150 Lab / Micro Data 02/17/25 05:25 02/16/25 06:48 Labs: Laboratory Results - last 24 hr 02/17/25 05:25: WBC 9.3, RBC 4.21, Hgb 13.7, Hct 40.8, MCV 96.9, MCH 32.5 H, MCHC 33.6, RDW Std Deviation 42.9, RDW Coeff of Rosalie 12.1, Plt Count 239, MPV 10.0, Immature Gran % (Auto) 0.500, Neut % (Auto) 85.4 H, Lymph % (Auto) 6.1 L, Hickman % (Auto) 7.9, Eos % (Auto) 0.0, Baso % (Auto) 0.1, Absolute Neuts (auto) 7.9 H, Absolute Lymphs (auto) 0.57 L, Nucleated RBC % 0 Micro: Microbiology 02/15/25 14:27 Sputum, Expectorated/Coughed Gram Stain - Final 02/14/25 05:40 Mucosa - Nasopharyngeal Respiratory Panel (PCR) - Final Human [place] 02/14/25 03:32 Mucosa - Nose SARS-CoV-2, Influenza & RSV (PCR) - Final Rhythm Strip Rhythm Strip: Sinus Tach Rate: 115 Ectopy: None Physical Exam Const alert, oriented x3, no apparent distress, average body habitus and well nourished; Negative for healthy appearing Constitutional Narrative: Middle-aged, white female, appears much older than stated age, sitting up in bed, watching television, appears comfortable, nontoxic HEENT normocephalic and head/scalp atraumatic HEENT Narrative: Mallampati 2, no thrush Resp normal respiratory effort, no retractions, no use of accessory muscles and No clear to auscultation bilaterally Resp Narrative: Diffusely diminished with end expiratory wheezes noted inspiratory wheezes have improved Auscultation: wheezes; Negative for crackles or rhonchi Cardio regular rhythm, S1 normal heart sound, S2 normal heart sound, no murmurs, no rub, no gallops and no clicks; Negative for regular rate Cardio Narrative: Remains mildly tachycardic but regular GI normal to inspection, nondistended, normoactive bowel sounds, soft to palpation and non-tender Extremity no clubbing, cyanosis or edema Extremity Narrative: 2+ pedal pulses Neuro oriented x3, moves all extremities and no focal motor deficits Speech: speech normal Psych affect normal Psych Narrative: Eye contact is good and patient interacts appropriately Appearance: appropriate Assessment & Plan Assessment/Plan (1) Acute hypoxic respiratory failure: (2) Infection due to human metapneumovirus (hMPV): (3) Hyperglycemia: (4) Acute exacerbation of chronic obstructive pulmonary disease (COPD): PLAN: Plan Acute hypoxic respiratory failure secondary to COPD exacerbation due to human metapneumovirus infection/+-superimposed bacterial pneumonia - No infiltrate noted on imaging however sputum culture does show gram negative cocci bacillus on the Gram stain -Finalized cultures remain pending - Supportive care for COPD exacerbation -Continue Mucinex 1200 p.o. 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-small cell lung CA (adenocarcinoma) -T1c N0 M0 Stage IA -PFTs was suboptimal so was not a surgical candidate -Received SBRT at [facility] 06/10/2020 to 06/20/2020 - Has been following as an outpatient - Will refer back for reevaluation after discharge given report on CT - Last oncology appointment was 01/07/2025 - Patient was instructed to follow-up with oncology after discharge and this will be placed in her discharge information as well Bipolar disorder -reported bipolar disorder however patient is not on medications - Recommend outpatient follow-up - Continue home hydroxyzine Overactive bladder - Continue home medications - Outpatient follow-up Tobacco abuse - Ongoing -highly recommend cessation however patient states she just wants to cut back -Continue nicotine patch - Complete cessation discussed with patient DVT prophylaxis -continue subcu enoxaparin CODE STATUS -Full code was verified on admission Charges/Coding Visit Charges Inpatient E&M: 91319 Subs Hosp L2
[2025-02-18] VITALS (9 sets, daily range): BP systolic 111–131; BP diastolic 70–92; PULSE 77–118; RESP 15–22; TEMP 36.5–36.7; O2SAT 82–97
[2025-02-18] MEDS: Methylprednisolone Sod Succ 40 MG/ML VIAL IV ×3 (00:15→14:39)
[2025-02-18] MEDS: Nystatin/Triamcin Cream Tube 1 APPLIC TOPICAL ×2 (00:15→11:04)
[2025-02-18] MEDS: guaiFENesin 1,200 MG Tablet 1200 MG PO ×2 (00:15→11:04)
[2025-02-18] MEDS: Benzonatate 100 MG Capsule PO ×3 (00:15→14:39)
[2025-02-18] MEDS: Albuterol 2.5 MG/3 ML VIAL.NEB. INHALATION (03:43)
[2025-02-18] MEDS: 0.9% Saline Lock 10 ML Syringe IV ×3 (05:54→14:43)
[2025-02-18] MEDS: Ipratropium/Albuterol Sulfate 3 ML AMPUL.NEB INHALATION ×2 (07:04→10:20)
[2025-02-18 07:43] LABS: Hemoglobin 14.7 g/dL (12.0-15.0); Mean Corp Hgb Conc 32.7 g/dL (32-36); Mean Corpuscular Hgb 32.2 pg (27.0-32.0); Mean Corpuscular Volume 98.5 fL (81-99); Mean Platelet Vol. 9.4 fl (6.2-12.0); Platelet Count 261 K/mm3 (150-450); RBC Distribution Width CV 12.1 % (11.6-14.6); RBC Distribution Width SD 44.2 fl (35.1-43.9); Red Blood Count 4.57 M/mm3 (4.2-5.4); White Blood Count 7.3 K/mm3 (4.4-11.0)
[2025-02-18 08:07] LABS: ALB/GLOB Ratio 1.2 RATIO (0.9-2.4); AST(SGOT) 25 U/L (<=31); Alanine Aminotransfer ALT/SGPT 28 U/L (<=34); Albumin, Serum 3.8 g/dL (3.5-5.0); Alkaline Phosphatase 67 U/L (35-104); Anion Gap 11 (5-15); BUN 12 mg/dL (4-19); BUN/Creat Ratio 21.9 RATIO (10-20); Calcium,Total 8.8 mg/dL (7.6-11.0); Carbon Dioxide 28.6 mmol/L (21.0-32.0); Chloride 99 mmol/L (98-108); Creatinine, Serum 0.57 mg/dL (0.70-1.20); EST Glomerular Filtration Rate 107 (>60); Estimated Creatinine Clearance 97.25 ml/min (50-250); Globulin 3.3 g/dL (2.2-4.2); Glucose 148 mg/dL (70-99); Magnesium 2.2 mg/dL (1.5-2.2); Phosphorus 3.9 mg/dL (2.7-4.5); Protein, Total 7.1 g/dL (5.9-8.4); Sodium Level 138 mmol/L (133-145)
[2025-02-18] MEDS: Ceftriaxone 1 GM/50 ML BAG IV (10:14)
[2025-02-18] MEDS: Furosemide 40 MG/4 ML Vial IV (10:14)
[2025-02-18] MEDS: 0.9% Normal Saline (100mL Bag) 100 ML 15 ML IV (10:45)
[2025-02-18] MEDS: Montelukast 10 MG Tablet PO (11:04)
[2025-02-18] MEDS: Vibegron 75 MG TABLET PO (11:04)
[2025-02-18] MEDS: Enoxaparin 40 MG/0.4 ML Syringe SC (11:05)
[2025-02-18] MEDS: Polyethylene Glycol 3350 17 GM PACKET PO (11:05)
--- NOTE | 2025-02-18 14:17 | DS.PCM_ITS ---
Providers Date of Admission: 02/14/25 Date of Discharge: 02/18/25 Primary Care Physician: Dr. Chris Balderas DO Reason For Visit: COPD EXACERBATION WITH HYPOXIA Diagnosis Discharge Diagnosis (1) Acute hypoxic respiratory failure: Status: Acute Code(s): J96.01 - Acute respiratory failure with hypoxia (2) Infection due to human metapneumovirus (hMPV): Status: Acute Code(s): B34.8 - Other viral infections of unspecified site (3) Hyperglycemia: Status: Acute Code(s): R73.9 - Hyperglycemia, unspecified (4) Acute exacerbation of chronic obstructive pulmonary disease (COPD): Status: Chronic Code(s): J44.1 - Chronic obstructive pulmonary disease with (acute) exacerbation Medications at Discharge Home Medications guaifenesin 1,200 mg tablet, extended release 12 hr 1,200 mg PO Q12H #60 tabs 08/22/23 mirabegron 25 mg tablet,extended release 24 hr (Myrbetriq) 25 mg PO DAILY 08/22/23 albuterol sulfate 90 mcg/actuation breath activated powder inhaler 2 inh inhalation Q4H PRN Sob &/Or Wheezing #1 ea 05/08/24 budesonide 160 mcg-glycopyr 9 mcg-formot 4.8 mcg/actuation HFA inhaler (Breztri Aerosphere) 2 inh inhalation BID #10.7 grams 05/08/24 montelukast 10 mg tablet 10 mg PO DAILY #30 tabs 05/08/24 albuterol 90 mcg-budesonide 80 mcg/actuation HFA aerosol inhaler (Airsupra) 2 inh inhalation 5X/DAY PRN shortness of breath 02/14/25 clobetasol 0.05 % topical cream topical 02/14/25 guaifenesin 600 mg tablet, extended release 12 hr (Mucus Relief ER) 600 mg PO Q12.TCU 02/14/25 hydroxyzine HCl 25 mg tablet 25 mg PO DAILY 02/14/25 solifenacin 5 mg tablet 5 mg PO DAILY 02/14/25 triamcinolone acetonide 0.1 % topical cream applic topical 02/14/25 benzonatate 100 mg capsule 100 mg PO TID #90 caps 02/18/25 levofloxacin 750 mg tablet 750 mg PO DAILY #5 tabs 04/24/25 prednisone 10 mg tablet 10 mg PO DAILY #40 tabs 02/18/25 Hospital Course Operations None Procedures EKG and - (Chest x-ray/CTA of the chest) Summary of Care Provided Minutes Spent on Discharge: 41 Hospital Course: Patient is a 54-year-old white female with a complex pulmonary history including previous right lung adenocarcinoma s/p radiation, COPD and ongoing tobacco abuse who presented to the emergency department was prehospital on 02/14/2025 with a chief complaint of shortness of breath. In conjunction she also complained of a dry cough that started the day prior and midday. She noted that her granddaughter recently had an episode of upper respiratory symptoms. Overnight prior to presentation she became significantly more short of breath with some chest pressure so she came in for evaluation. In triage her pulse ox was noted to be 60% on room air. She typically does not wear oxygen at baseline. She was initially placed on a nonrebreather and was giving a breathing treatment with quick improvement. Vital signs on presentation showed a temperature of 97, heart rate 119, respiratory rate 26, blood pressure was 142/94 and pulse ox was 97% on 15 L nonrebreather. She was able to be weaned to 7 L by the time she was transferred out of the ED to the medical floor. CBC on presentation was overtly unremarkable other than elevated hemoglobin. She did have a left shift with a 71.8% neutrophilia and a monocytosis. ABG showed a normal pH at 7.35 with a PO2 of 66 on high flow nasal cannula. Chemistry panel was unremarkable other than some hyperglycemia with a blood sugar of 145. BNP was normal. Troponin x 3 was unremarkable. Chest x-ray showed COPD changes in the lungs and spiculated masses within the right upper lobe. CTA of the chest was performed and showed no PE and slightly increased size in the right upper lobe spiculated pulmonary nodule was and moderate stable emphysematous changes. Respiratory viral panel returned positive for human metapneumovirus. Sputum culture was collected and ultimately resulted positive for strep agalactiae and haemophilus influenza. Once her Gram stain showed Gram negative cocci bacillus she was started on ceftriaxone. On admission she was initially placed on IV steroids, aggressive pulmonary toilet, Mucinex, and Acapella/incentive spirometry. Slowly with time her oxygen demands decreased. She was given a couple doses of Lasix to try to dry out her lungs and optimize her oxygenation. She was maintained on steroids throughout her hospital course. As noted above, her sputum culture did show haemophilus and strep agalactiae. Sensitivities were not back at the time of discharge and she was placed on Levaquin due to penicillin allergy. Ambulatory pulse ox was performed I have reviewed the oxygen testing, and this patient qualifies for the home equipment and portability. The patient is mobile in the home and the community. She was noted to require 4 L at rest with exertion. She does follow with pulmonary medicine and we have asked her to follow-up with them in the next 2 weeks as their schedule allows. With regards to her pulmonary nodules she has an upcoming appointment already made prior to discharge to see Dr. Perez at the end of the month for further recommendations with regards to the changes noted on her CT. She was discharged with Levaquin for another 5 days, slow prednisone taper, and encouraged to use her incentive spirometry and Acapella after discharge. She should continue her home Mucinex and her home inhalers. She is able to be discharged home in stable condition on 4 L of oxygen on 02/18/2025. She was advised and completes tobacco cessation and the dangers of smoking on oxygen were discussed. She voiced understanding. Discharge diagnoses: Acute hypoxic respiratory failure COPD exacerbation secondary to human metapneumovirus infection Haemophilus and strep agalactiae pneumonia Right upper lobe mass History of non-small cell lung CA-adenocarcinoma Bipolar disorder Overactive bladder Tobacco abuse Physical Exam Const alert, oriented x3, no apparent distress, average body habitus, no limitations and well nourished; Negative for healthy appearing Constitutional Narrative: Middle-aged, white female, appears much older than stated age, sitting up in bed, watching television, appears comfortable, nontoxic General Appearance: cooperative, comfortable, well kempt and well developed Orientation / Consciousness: lethargic Exam Limitations: no limitations HEENT normocephalic and head/scalp atraumatic Eyes EOMs intact bilaterally and conjunctivae normal Eyes Narrative: No scleral icterus Neck no lymphadenopathy and supple Neck Narrative: Trachea midline Resp normal respiratory effort, no retractions, no use of accessory muscles and No clear to auscultation bilaterally Resp Narrative: Diffusely diminished with end expiratory wheezes Auscultation: wheezes; Negative for crackles or rhonchi Cardio regular rate, regular rhythm, S1 normal heart sound, S2 normal heart sound, no murmurs, no rub, no gallops and no clicks GI normal to inspection, nondistended, normoactive bowel sounds, soft to palpation, non-tender and non-distended Extremity no clubbing, cyanosis or edema Extremity Narrative: 2+ pedal pulses Skin no rashes or lesions noted Neuro oriented x3, moves all extremities and no focal motor deficits Speech: speech normal Psych cooperative Psych Narrative: Eye contact is good Mood & Affect: anxious Weight / BMI Weight Weight: 64.6 kg Body Mass Index (BMI) 26.0 ABG / Lab / Microbiology Data 02/18/25 07:22 02/18/25 07:22 Laboratory: Laboratory Results - last 24 hr 02/18/25 07:22: WBC 7.3, RBC 4.57, Hgb 14.7, Hct 45.0, MCV 98.5, MCH 32.2 H, MCHC 32.7, RDW Std Deviation 44.2 H, RDW Coeff of Rosalie 12.1, Plt Count 261, MPV 9.4, Sodium 138, Potassium 5.0, Chloride 99, Carbon Dioxide 28.6, Anion Gap 11, BUN 12, Creatinine 0.57 L, Estim Creat Clear Calc 97.25, Est GFR (MDRD) Non-Af 107, BUN/Creatinine Ratio 21.9 H, Glucose 148 H, Calcium 8.8, Phosphorus 3.9, Magnesium 2.2, Total Bilirubin 0.20, AST 25, ALT 28, Alkaline Phosphatase 67, Total Protein 7.1, Albumin 3.8, Globulin 3.3, Albumin/Globulin Ratio 1.2 Microbiology: Microbiology 02/15/25 14:27 Sputum, Expectorated/Coughed Gram Stain - Final 02/15/25 14:27 Sputum, Expectorated/Coughed Respiratory Culture - Preliminary Haemophilus influenzae Streptococcus agalactiae (B) 02/14/25 05:40 Mucosa - Nasopharyngeal Respiratory Panel (PCR) - Final Human [place] 02/14/25 03:32 Mucosa - Nose SARS-CoV-2, Influenza & RSV (PCR) - Final D/C Instructions Discharge Diet: No restrictions Discharge Activity: Return to Normal Activity DC O2, CPAP, BIPAP Needs Home O2 Discharge instructions: Yes Type of respiratory needs?: Oxygen Oxygen frequency: Continuous Continuous oxygen liters per minute: 4 DC home with Oxygen: Yes Home O2 MD Review: I have reviewed the oxygen testing, and the patient qualifies for home oxygen equipment and portability. The patient is mobile in the home and the community. Meaningful Use Info Meaningful Use Meaningful Use Diagnoses (Choose all that apply): None applicable Ischemic Stroke Statin Dosing Therapy Reference: STATIN DOSE THERAPY REFERENCE: * Patients > 75 years receive moderate or high dose statin therapy. * Patients 75 years or YOUNGER should receive HIGH intensity statin dose unless contraindicated. You will be required to document reason for non-treatment if statin daily dose does not meet guidelines. HIGH DOSE STATIN THERAPY DAILY Atorvastatin > than or = to 40 mg Rosuvastatin > than or = to 20 mg Amlodipine + Atorvastatin > than or = to 2.5/40 mg Ezetimibe + Simvastatin 10/80 mg Simvastatin 80mg Discharge Plan Admission Admit Date/Time: 02/14/25 04:37 Primary Reason for Your Visit: Shortness of breath Attending Provider: Carole Daniels Primary Care Provider: Chris Balderas Consulting Providers: Gaurang Perdomo; Hilaria Moyer Instructions Additional Instructions / Restrictions: 1. You were found to have pneumonia. Please complete antibiotics as prescribed 2. Please continue your prednisone taper 3. Please call your die machine operator and asked to be followed up from the hospital for a COPD exacerbation and pneumonia within the next 2 weeks 4. Please wear her oxygen at 4 L all the time until otherwise instructed by physician 5. Do not smoke while you are on oxygen 6. Please follow-up with oncology-Dr. Perez as we discussed for the changes in your CAT scan Discharge Orders/Prescriptions Prescriptions: New benzonatate 100 mg Capsule 100 mg PO TID Qty: 90 0RF levofloxacin 750 mg tablet 750 mg PO DAILY Qty: 5 0RF prednisone 10 mg tablet 10 mg PO DAILY Qty: 40 0RF Rx Instructions: 4 tablets x 4 days, 3 tablets x 4 days, 2 tablets x 4 days, 1 tablet x 4 days then stop Continued Myrbetriq 25 mg tablet extended release 24 hr 25 mg PO DAILY guaifenesin 1,200 mg tablet extended release 12hr 1,200 mg PO Q12H Qty: 60 6RF albuterol sulfate 90 mcg/actuation aerosol powdr breath activated 2 inh INHALATION Q4H PRN (Reason: Sob &/Or Wheezing) Qty: 1 11RF Breztri Aerosphere 160-9-4.8 mcg/actuation HFA aerosol inhaler 2 inh inhalation BID Qty: 10.7 6RF montelukast 10 mg tablet 10 mg PO DAILY Qty: 30 11RF Airsupra 90-80 mcg/actuation HFA aerosol inhaler 2 inh INHALATION 5X/DAY PRN (Reason: shortness of breath) clobetasol 0.05 % cream topical triamcinolone acetonide 0.1 % cream topical hydroxyzine HCl 25 mg tablet 25 mg PO DAILY solifenacin 5 mg tablet 5 mg PO DAILY guaifenesin [Mucus Relief ER] 600 mg tablet extended release 12hr 600 mg PO Q12.TCU Referrals / Follow Up: August Perez MD [Med Staff - Active Staff] - Within 1 Month (To follow-up the changes on your CAT scan that we discussed) Chris Balderas DO [Primary Care Provider] - Within 1 Week Anum Mojica NP, [facility] [employer] [Med Staff - Adv Practice Prof] - Within 2 Weeks (Please call later today or tomorrow to set up an appointment to be seen next week if possible) Disposition Disposition (needs filled in before D/C Order can be placed): Home, Self Care Charges/Coding Visit Charges Inpatient E&M: 48903 Disch Hosp >30min
--- NOTE | 2025-02-18 14:50 | CASEMGMT ---
DARYL HAND NOTE: Discharge order is in. Home O2 amb testing has been completed. Pt qualifies for home O2 @ 4 L/M continuously. Dr Daniels notified and script received for same. Script sent to [facility] via [employer]. Awaiting delivery of portable O2 tank. DARYL HAND to room. Pt sitting up in chair. Introduced self and role. Discussed home O2 and questions answered. Made aware a portable O2 tank will be delivered to her room to go home on. Also made aware of importance to call [facility] to arrange delivery of home O2 prior to leaving the hospital today. She voices understanding. Pt smokes. Educated on importance on safety re: to never smoke while wearing oxygen and she is not to smoke in the home while oxygen and tanks are in the home. She voices understanding. Pt states she does not have a pulse ox but would like one. She was made aware insurance does not cover this. She states she has a Wellness card and would like to get from [facility] retail pharmacy, if possible, and have delivered to her room. Call placed to the pharmacy and they will call her to get card info and deliver to room if they are able to use the card. Pt made aware if unable to use Wellness card @ [facility] Retail pharmacy of other locations she can get one. She is aware Rx's have been sent to [facility] and states she can try to use her Wellness card there as well. Pt aware she is to f/u with PCP in 1 week, Anum Mojica in 2 wks, and Dr Perez within a month. She states her sig other, Petr, will be taking her home today and they can stop @ [facility] to corn picker her medications. She denies having any other dc needs, questions, or concerns. Marcell GORMAN RN, CM
== END 2025-02-18 16:57 | disposition home or self-care (01) | DRG 190 ==
LOC: ED 04:34 → PCU 04:55
PROVIDERS: Student in an Organized Health Care Education/Training Program; Admitting Provider Hospitalist; Emergency Provider Emergency Medicine; Visit Provider Internal Medicine
DX: J44.0 Chronic obstructive pulmonary disease with (acute) lower respiratory infection (principal); J96.01 Acute respiratory failure with hypoxia; J14 Pneumonia due to Hemophilus influenzae; J15.4 Pneumonia due to other streptococci; E88.819 Insulin resistance, unspecified; F31.9 Bipolar disorder, unspecified; J44.1 Chronic obstructive pulmonary disease with (acute) exacerbation; F17.210 Nicotine dependence, cigarettes, uncomplicated; B97.81 Human metapneumovirus as the cause of diseases classified elsewhere; R73.9 Hyperglycemia, unspecified; N32.81 Overactive bladder; R91.8 Other nonspecific abnormal finding of lung field; Z11.52 Encounter for screening for COVID-19; Z88.0 Allergy status to penicillin; Z79.899 Other long term (current) drug therapy; Z92.3 Personal history of irradiation; Z85.118 Personal history of other malignant neoplasm of bronchus and lung
CPT/HCPCS: 36415; 36600; 71045; 71275; 80048; 80053; 82803; 83036; 83735; 83880; 84100; 84484; 85025; 85027; 87070; 87077; 87186; 87205; 87631; 87633; 93005; 94640; 94668; 94762; 99285; Q9967; A4216; J1940